=== PATIENT | male | born 1935 | race Caucasian/White ===

== ENCOUNTER 2017-06-18 15:41 | Inpatient (IN) ==
--- NOTE | 2017-06-18 16:15 | Emergency Department Note ---
Disposition Clinical Impression: Prostate cancer Urinary tract infection Qualifiers: Urinary tract infection type: acute cystitis Hematuria presence: without hematuria Qualified Code(s): N30.00 - Acute cystitis without hematuria Disposition: Admitted As Inpatient Condition: Fair Referrals: Odell Marshall MD [Primary Care Provider] - Forms: Work/School Release, ED Satisfaction Letter Time of Disposition: 18:15 Male Urogenital HPI - General Chief complaint: ED Urogenital-Male Stated complaint: Prostate problems,CA Time Seen by Provider: 06/18/17 15:59 Source: patient, family Mode of arrival: ambulatory Limitations: no limitations Nursing Notes Reviewed: Yes Vital Signs Reviewed: Yes - History of Present Illness HPI Narrative: 82-year-old male who comes in apparently has a history of metastatic prostate disease was seen over at the cancer center and sent here for evaluation possible [place] patient's had progressive pain in the severe they are concerned he may have a prostatitis on top of the cancer. They want the patient admitted they will see him in consult here in the hospital. 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 Pt Subjective Complaint: other (Pelvic pain) Onset (ago): year(s) (2015) Duration: constant Location: other (Pelvic region) Severity: moderate, severe Quality: aching Improves with: none new medication - Related Data Home Medications Medication Instructions Recorded Confirmed Aspirin Enteric Coated [Aspirin EC] 81 mg PO DAILY 10/01/16 06/18/17 Lisinopril [Zestril] 20 mg PO DAILY 10/01/16 06/18/17 Omeprazole [PriLOSEC] 20 mg PO DAILY 10/01/16 06/18/17 Psyllium Seed (with Dextrose) 368 gm PO TID 10/01/16 06/18/17 [Natural Fiber Lax Powder] Tramadol HCl/Acetaminophen 1 each PO HS 10/01/16 06/18/17 [Ultracet Tablet] Previous Rx's Medication Instructions Recorded Gabapentin [Neurontin] 100 mg PO DAILY #150 capsule 11/06/16 Allergies Allergy/AdvReac Type Severity Reaction Status Date / Time Iodinated Contrast- Oral and Allergy See Verified 06/18/17 15:00 IV Dye Comments Constitutional: Denies: fever, chills, weakness, weight change Eyes: Denies: eye pain, eye discharge, vision change ENT ED: Denies: ear pain, throat pain, dental pain, hearing loss, epistaxis, congestion, dysphagia Cardiovascular: Denies: chest pain, palpitations, dyspnea on exertion, edema, syncope Respiratory: Denies: cough, dyspnea, wheezes, hemoptysis, stridor Gastrointestinal: Reports: abdominal pain. Denies: nausea, vomiting, diarrhea, constipation, hematemesis, melena, hematochezia Genitourinary: Denies: urgency, dysuria, frequency, hematuria Musculoskeletal: Denies: back pain, neck pain, arthralgia, myalgia Integumentary: Denies: rash, abrasion, lesions Neurological: Denies: headache, weakness, numbness, paresthesias, confusion, abnormal gait, vertigo Psychiatric: Denies: anxiety, depression, suicidal thoughts, homicidal thoughts , auditory hallucinations, visual hallucinations Endocrine: Denies: fatigue Hematological/Lymphatic: Denies: easy bleeding, easy bruising Allergic/Immunologic: Denies: facial swelling, urticaria Past Medical History - Past Medical History Medical history: Reports: cancer, hypertension Psychiatric history: Reports: no psych history - Social History Smoking Status: Former smoker Smokeless Tobacco Status: No Alcohol use: Reports: none Drug use: Reports: none Physical Exam - General Limitations: no limitations General appearance: alert, in no apparent distress - Head Head exam: normal inspection - Eye Eye exam: Present: normal appearance - ENT ENT exam: normal exam, normal oropharynx, mucous membranes moist, normal external ear exam - Neck Neck exam: Present: normal inspection, full ROM, trachea midline - Chest Chest inspection: Present: normal inspection, symmetric chest wall rise - Respiratory Respiratory exam: Present: normal lung sounds bilaterally - Cardiovascular Cardiovascular exam: Present: regular rate, normal rhythm, normal heart sounds - Extremities Exam Extremities exam: Present: normal inspection - Back Exam Back exam: Present: normal inspection - Neurological Exam Neurological exam: Present: alert, oriented X3, normal gait - Psychiatric Psychiatric exam: Present: normal affect, normal mood - Skin Skin exam: Present: warm, dry, intact, normal color Course - Reevaluation(s) Reevaluation #1: 82-year-old with metastatic prostate cancer with increasing pain. He saw oncology today who sent him in for admission. Urology is being consult. We will start him on antibiotics. Time: 18:14 - Consultations Consultation #1: Discussed with Dr. Hubbard, we will see the patient in consult. Time: 18:14 Consultation #2: Discussed with Roney Latham Time: 18:29 Vital Signs Temperature 98.4 F 06/18/17 15:43 Pulse Rate 79 06/18/17 15:43 Respiratory Rate 22 06/18/17 15:43 Blood Pressure 114/88 06/18/17 15:43 O2 Sat by Pulse Oximetry 92 06/18/17 15:43 Temperature 98.4 F 06/18/17 15:56 Pulse Rate 67 06/18/17 18:02 Respiratory Rate 22 06/18/17 15:56 Blood Pressure 127/61 06/18/17 18:02 O2 Sat by Pulse Oximetry 98 06/18/17 18:02 Oxygen Delivery Oxygen Delivery Room Air Urogenital-Male - Lab Data Result diagrams: 06/18/17 16:18 06/18/17 16:18 Lab Results 06/18/17 06/18/17 06/18/17 Range/Units 16:18 16:18 16:50 WBC 12.9 H (4.3-11.1) K/mcL RBC 2.98 L (4.19-5.50) M/mcL Hgb 9.5 L (12.9-16.9) g/dL Hct 28.9 L (37.5-50.1) % MCV 97.0 (83.0-100.0) fL MCH 31.9 (28.0-33.3) pg MCHC 32.9 (31.6-35.5) g/dL RDW 13.1 (11.5-14.5) % Plt Count 257 (140-400) K/mcL MPV 9.0 L (9.4-12.4) fL Immature Gran % 0.4 (0-4) % Seg Neutrophils % 77.1 % Lymphocytes % 13.6 % Monocytes % 7.4 % Eosinophils % 0.9 % Basophils % 0.6 % Neutrophils # 10.0 H (1.6-8.9) K/mcL Lymphocytes # 1.8 (0.6-4.6) K/mcL Monocytes # 1.0 (0.0-1.3) K/mcL Eosinophils # 0.1 (0.0-0.6) K/mcL Basophils # 0.1 (0.0-0.2) K/mcL Sodium 137 (136-145) mEq/L Potassium 4.3 (3.5-5.1) mEq/L Chloride 106 (98-107) mEq/L Carbon Dioxide 27 (23-29) mEq/L BUN 24 H (8-23) mg/dL Creatinine 1.45 H (0.70-1.30) mg/dL Est GFR ( Amer) 56 L (> 60) Est GFR (Non-Af Amer) 46 L (> 60) BUN/Creatinine Ratio 17 (6-26) Glucose 108 H (70-105) mg/dL Calculated Osmolality 289 (280-300) Calcium 8.6 (8.6-10.3) mg/dL Urine Color Red A (Yellow) Urine Clarity Turbid A (Clear) Urine pH 6.0 (5.0-8.0) pH Units Ur Specific [place] 1.016 (1.010-1.025) Urine Protein 100 H (Neg-Trace) mg/dL Urine Glucose (UA) Normal (Normal) mg/dL Urine Ketones Trace H (Negative) mg/dL Urine Blood Large H (Negative) Urine Nitrite Positive A (Negative) Urine Bilirubin Small H (Negative) Urine Urobilinogen Normal (Normal) mg/dL Ur Leukocyte Esterase Large H (Negative) Urine Microscopic RBC TNTC H (0-3) per hpf Urine Microscopic WBC TNTC H (0-3) per hpf Ur Squamous Epith Cells Many H (None-Few) per lpf Urine Bacteria Moderate H (None-Few) per hpf Ur Culture Indicated? NO. A (NO)
[2017-06-18 16:34] LABS: Basophils # 0.1 K/mcL (0.0-0.2); Basophils % 0.6 %; Eosinophils # 0.1 K/mcL (0.0-0.6); Eosinophils % 0.9 %; Hematocrit 28.9 % (37.5-50.1); Hemoglobin 9.5 g/dL (12.9-16.9); Immature Granulocytes % 0.4 % (0-4); Lymphocytes # 1.8 K/mcL (0.6-4.6); Lymphocytes % 13.6 %; Mean Corpuscular HGB Conc 32.9 g/dL (31.6-35.5); Mean Corpuscular Hemoglobin 31.9 pg (28.0-33.3); Monocytes % 7.4 %; Platelet Count 257 K/mcL (140-400); Red Blood Count 2.98 M/mcL (4.19-5.50); Red Cell Distribution Width 13.1 % (11.5-14.5); Segmented Neutrophils % 77.1 %
[2017-06-18 16:50] LABS: Calcium 8.6 mg/dL (8.6-10.3); Potassium 4.3 mEq/L (3.5-5.1)
[2017-06-18 17:12] LABS: Bilirubin,Urine Small (Negative); Blood,Urine Large (Negative); Clarity,Urine Turbid (Clear); Color,Urine Red (Yellow); Glucose,Urine (UA) Normal (Normal); Ketones,Urine Trace mg/dL (Negative); Leukocyte Esterase,Urine Large (Negative); Nitrite,Urine Positive (Negative); Protein,Urine 100 mg/dL (Neg-Trace); Specific Gravity,Urine 1.016 (1.010-1.025); Urobilinogen,Urine Normal (Normal)
[2017-06-18 17:13] LABS: Bacteria,Urine Moderate per hpf (None-Few); RBC,Urine TNTC per hpf (0-3); Squamous Epithelial Cell,Urine Many per lpf (None-Few); WBC,Urine TNTC per hpf (0-3)
[2017-06-18] MEDS ORDERED: cefTRIAXone 1,000 MG in Water for inj. (sterile) 20 ML 10 ML IVP ONE (17:39)
[2017-06-18] MEDS ORDERED: Naloxone 0.4 MG/ML INJ IVP PRN (21:05)
--- NOTE | 2017-06-18 21:14 | Internal Med History&Physical ---
Date of Encounter: 06/18/17 Time of Encounter: 19:30 Internal Medicine - H&P: HPI Chief complaint: Dysuria Admitted From: Home Plans for Post Hospital Care: Home History of present illness: Mr. Link is a 82 year old male presented to ER for dysuria for about 1 week. Past medical history is significant for hypertension, CAD S/P stent, prostate cancer with bone metastasis, recurrent UTI. Patient said he started to have pain on urination since about one week ago. With a burning sensation on urination. The pain is severe, described by patient as "20/10". Patient denies fever, nausea, vomiting, or flank pain. In the emergency room, UA shows UTI. Patient was started with Rocephin and admitted for further management. Urology and oncology consult was called by ER. Past Med Surg Social Fam HX - Past Medical History Medical history: cancer, hypertension Psychiatric history: no psych history - Social History Smoking Status: Former smoker Smokeless Tobacco Status: No Alcohol use: none Drug use: none - Family History Mother History Unknown: Yes Internal Medicine - H&P: Meds Aspirin Enteric Coated [Aspirin EC] 81 mg PO DAILY 10/01/16 [History] Lisinopril [Zestril] 20 mg PO DAILY 10/01/16 [History] Omeprazole [PriLOSEC] 20 mg PO DAILY 10/01/16 [History] Psyllium Seed (with Dextrose) [Natural Fiber Lax Powder] 368 gm PO TID 10/01/16 [History] Gabapentin [Neurontin] 100 mg PO DAILY #150 capsule 11/06/16 [Rx] 3 Allergy/AdvReac Type Severity Reaction Status Date / Time Iodinated Contrast- Oral and Allergy See Verified 06/18/17 18:51 IV Dye Comments All Systems PM: A 10-system review of systems was performed and is negative for pertinent findings except as documented above in the HPI. - Constitutional Vitals: Temp Pulse Resp BP Pulse Ox 98.3 F 73 15 162/52 97 06/18/17 19:34 06/18/17 19:34 06/18/17 19:34 06/18/17 19:34 06/18/17 19:34 General appearance: Present: A&O X 3, no acute distress, answers questions appropriately - Head Head exam: Present: atraumatic, normocephalic - Eye Eye exam: Present: PERRL, conjuntiva pink, sclera anicteric Pupils: Present: PERRL - Neck Neck exam general surgery: Present: supple, trachea midline. Absent: lymphadenopathy - Respiratory Respiratory exam: Present: CTAB. Absent: accessory muscle use, rales, rhonchi, wheezes - Cardiovascular Cardiovascular exam: Present: RRR, +S1, +S2. Absent: diastolic murmur, gallop, rubs, systolic murmur - GI/Abdominal GI/Abdominal exam: Present: normal bowel sounds, soft, no peritoneal signs. Absent: distended, tenderness - Extremities Exam Extremities exam: Present: warm, radial pulses palpable and symmetrical. Absent : calf tenderness, cyanotic, pedal edema - Neurological Exam Neurological exam: Present: CN II-XII intact, oriented X3, no focal deficits. Absent: pronater drift, facial droop, speech deficit - Skin Skin exam: Present: dry, intact Internal Med - H&P Results - Labs CBC & Chem 7: 06/18/17 16:18 06/18/17 16:18 - Assessment and plan (1) CAD (coronary artery disease) Current Visit: Yes Status: Acute Assessment and plan: Will continue home medications. Patient has no chest pain at this point. Qualifiers: Coronary Disease-Associated Artery/Lesion type: [place] artery [place] vs. transplanted heart: ruby heart Associated angina: without angina Qualified Code(s): I25.10 - Atherosclerotic heart disease of [place] coronary artery without angina pectoris (2) Hypertension Current Visit: Yes Status: Acute Assessment and plan: Continue home medications. Closely monitor BP Qualifiers: Hypertension type: essential hypertension Qualified Code(s): I10 - Essential (primary) hypertension (3) DVT prophylaxis Current Visit: Yes Status: Acute Assessment and plan: Heparin subcutaneously (4) Prostate cancer Current Visit: Yes Status: Acute Assessment and plan: Patient has remote metastasis to bone and possible to lung as well. Oncology consult. (5) Urinary tract infection Current Visit: Yes Status: Acute Assessment and plan: No signs of pyelonephritis. Continue Rocephin IV. Follow up urine culture. Urology consult was called by ER because of recurrent UTIs Qualifiers: Urinary tract infection type: acute cystitis Hematuria presence: without hematuria Qualified Code(s): N30.00 - Acute cystitis without hematuria - Time Spent With Patient Total time spent is greater than 50% in coordination of care (as documented) at patient's floor/unit and/or counseling patient: 40 minutes Greater than 35 minutes
[2017-06-18] MEDS ORDERED: *HR* OxyCODONE/APAP 5/325 TABLET PO PRN (22:17)
[2017-06-18] MEDS ORDERED: Acetaminophen 325 MG TABLET PO PRN (22:18)
[2017-06-18] MEDS: *HR* HYDROcodone/Acet 5/325 mg TABLET PO PRN (22:34)
[2017-06-19 04:27] LABS: Basophils # 0.1 K/mcL (0.0-0.2); Basophils % 0.6 %; Eosinophils # 0.1 K/mcL (0.0-0.6); Eosinophils % 0.6 %; Hematocrit 30.2 % (37.5-50.1); Immature Granulocytes % 0.4 % (0-4); Lymphocytes # 2.2 K/mcL (0.6-4.6); Lymphocytes % 15.5 %; Mean Corpuscular HGB Conc 33.1 g/dL (31.6-35.5); Mean Corpuscular Hemoglobin 32.1 pg (28.0-33.3); Mean Corpuscular Volume 96.8 fL (83.0-100.0); Mean Platelet Volume 9.2 fL (9.4-12.4); Monocytes # 0.9 K/mcL (0.0-1.3); Monocytes % 6.7 %; Neutrophils # 10.6 K/mcL (1.6-8.9); Platelet Count 260 K/mcL (140-400); Red Blood Count 3.12 M/mcL (4.19-5.50); Red Cell Distribution Width 13.1 % (11.5-14.5); Segmented Neutrophils % 76.2 %
[2017-06-19 04:51] LABS: Calcium 8.7 mg/dL (8.6-10.3); Magnesium 1.9 mg/dL (1.6-2.6); Potassium 4.1 mEq/L (3.5-5.1)
[2017-06-19] MEDS: *HR* Heparin 5,000 UNIT/ML VIAL SQ SCH ×2 (06:03→17:22)
--- NOTE | 2017-06-19 07:30 | Internal Med Progress Note ---
Date of Encounter: 06/19/17 Time of Encounter: 07:15 - Assessment and plan (1) Urinary tract infection Current Visit: Yes Status: Acute Assessment and plan: Continue Rocephin IV. Follow up urine culture. Urology consult was called by ER because of recurrent UTIs. Appreciate urology recommendations Qualifiers: Urinary tract infection type: acute cystitis Hematuria presence: without hematuria Qualified Code(s): N30.00 - Acute cystitis without hematuria (2) Prostate cancer Current Visit: Yes Status: Acute Assessment and plan: Patient has remote metastasis to bone and possible to lung as well. CT abdomen shows new pulmonary nodules. Appreciate oncology recs. Will also consult palliative care (3) CAD (coronary artery disease) Current Visit: Yes Status: Acute Assessment and plan: continue home meds Qualifiers: Coronary Disease-Associated Artery/Lesion type: [place] artery [place] vs. transplanted heart: [place] heart Associated angina: without angina Qualified Code(s): I25.10 - Atherosclerotic heart disease of [place] coronary artery without angina pectoris (4) Hypertension Current Visit: Yes Status: Acute Assessment and plan: Continue home medications. Closely monitor BP Qualifiers: Hypertension type: essential hypertension Qualified Code(s): I10 - Essential (primary) hypertension (5) DVT prophylaxis Current Visit: Yes Status: Acute Assessment and plan: Heparin subcutaneously (6) Acute kidney injury Current Visit: Yes Status: Acute Assessment and plan: ANN vs Ann on CKD. Monitor creatinine. IV fluids - Time Spent With Patient Total time spent is greater than 50% in coordination of care (as documented) at patient's floor/unit and/or counseling patient: - Subjective Interval history: No acute events overnight - Constitutional Vitals: Temp Pulse Resp BP Pulse Ox 98.9 F 59 18 140/50 96 06/19/17 07:22 06/19/17 07:22 06/19/17 07:22 06/19/17 07:22 06/19/17 07:22 General appearance: Present: A&O X 3, no acute distress, answers questions appropriately - Head Head exam: Present: atraumatic, normocephalic - Eye Eye exam: Present: PERRL, conjuntiva pink, sclera anicteric Pupils: Present: PERRL - Neck Neck exam general surgery: Present: supple, trachea midline. Absent: lymphadenopathy - Respiratory Respiratory exam: Present: CTAB. Absent: accessory muscle use, rales, rhonchi, wheezes - Cardiovascular Cardiovascular exam: Present: RRR, +S1, +S2. Absent: diastolic murmur, gallop, rubs, systolic murmur - GI/Abdominal GI/Abdominal exam: Present: normal bowel sounds, soft, no peritoneal signs. Absent: distended, tenderness - Extremities Exam Extremities exam: Present: warm, radial pulses palpable and symmetrical. Absent : calf tenderness, cyanotic, pedal edema - Neurological Exam Neurological exam: Present: CN II-XII intact, oriented X3, no focal deficits. Absent: pronater drift, facial droop, speech deficit - Skin Skin exam: Present: dry, intact Internal Medicine: Result - Labs CBC & Chem 7: 06/19/17 03:30 06/19/17 03:30 Labs: Short CBC 06/19/17 Range/Units 03:30 WBC 13.9 H (4.3-11.1) K/mcL Hgb 10.0 L (12.9-16.9) g/dL Hct 30.2 L (37.5-50.1) % Plt Count 260 (140-400) K/mcL Neutrophils # 10.6 H (1.6-8.9) K/mcL BMP 06/19/17 03:30 Sodium 137 Potassium 4.1 Chloride 104 Carbon Dioxide 24 BUN 23 Creatinine 1.49 H Glucose 101 Calcium 8.7 Consult Discharge Plan - Plan Referrals: Odell Marshall MD [Primary Care Provider] -
[2017-06-19] MEDS: *HR* OxyCODONE/APAP 5/325 TABLET PO PRN ×2 (09:58→19:06)
[2017-06-19] MEDS: Lisinopril 20 MG TABLET PO SCH (09:59)
[2017-06-19] MEDS: Aspirin Enteric Coated 81 MG Tablet PO SCH (09:59)
[2017-06-19] MEDS: Gabapentin 100 MG CAPSULE PO SCH (09:59)
[2017-06-19] MEDS: 0.9 % Sodium Chloride 1,000 ML IVC SCH ×2 (10:00→17:22)
--- NOTE | 2017-06-19 10:58 | Palliative - Consult Note ---
Date of Encounter: 06/19/17 Time of Encounter: 10:00 - Assessment and Plan (1) Weakness generalized Current Visit: Yes Status: Acute Assessment and plan: Patient reports increased concern over ability to care for self at discharge. Patient reports required 4 people to assist to bathroom earlier today. Patient lives alone. Patient is agreeable to attempting PT/OT to improve strength and willing to consider rehab placement at discharge. Will order PT/OT. (2) Goals of care, counseling/discussion Current Visit: Yes Status: Acute Assessment and plan: Spoke with patient regarding goals of care. Patient wishes to discuss disease prognosis with Oncology and his daughter prior to making decisions regarding pursuing hospice, versus continued cancer treatments every three months. Patient is aware he is not strong enough to care for himself, discussed the possibility of rehab at discharge; patient reports he will consider it. Patient did verbalize he does not wish to be intubated or having chest compressions; patient's code status changed to DNR CCA/DNI. Patient chose DNR CCA/DNI after being explained the options for code status. Patient verbalized that his previous had been made DNR CC and her " drug out forever, and she didn't seem to comfortable" and "just do what you can until my heart stops." Patient reported his daughter will be in from [place] this afternoon and requests Palliative care to round and talk with her regarding his care and discharge planning. SW notified. (3) Prostate cancer Current Visit: Yes Status: Acute Assessment and plan: Oncology is consulted. Expressed to patient prognosis of Prostate Cancer that is metastisizing. Patient verbalized understanding. Patient explained that patient's daughter wishes to bring him back to [place] at discharge; son wishes to bring him to [place] at discharge, and other son wishes to keep in [place] for rehab at discharge. Patient reports not making any final decisions without speaking with Oncology and his daughter. (4) Urinary tract infection Current Visit: Yes Status: Acute Assessment and plan: Patient receiving Ceftriaxone for UTI treatment. WBC worsening to 13.9 today. Qualifiers: Urinary tract infection type: acute cystitis Hematuria presence: without hematuria Qualified Code(s): N30.00 - Acute cystitis without hematuria Palliative-CN HPI - Data of Consult Patient: new to practice Consult date: 06/19/17 Requesting Physician: Roney Latham CNP Primary Care Provider: Odell Marshall MD - Consult Narrative Palliative Care/Comfort Measures: Palliative care Reason for consult: Assistance with goals of care. History of present illness: Mr. Link is a 82 year old male arrived to [facility] for dysuria times one week on 06/18/17. Patient reports a burning sensation with urination. PMH: HTN , CAD, s/p stent, recurrent UTIs, and prostate Cancer with bone metastatis. Urinalysis completed in ED showing UTI. Urology and Oncology consult made from ER. Patient was admitted for further management of CAD, HTN, Prostate Cancer, and UTI. CT completed showing: Several bibasilar pulmonary nodules present worrisome for pulmonary metastatic disease, Abnormal irregular thickening of the wall of the urinary bladder and moderate abnormal soft tissue in the presacral and pre coccygeal area consistent with radiation changes, Sclerotic area in the body of the left pubis possibly an osteoblastic metastasis, and Large hiatal hernia. Patient resting in bed with RN and two nursing students around him upon arrival for assessment. Patient is alert and oriented times three. Patient denies pain when not moving; however, reports an increase to a burning 20/10 with any type of movement. Concerned over new onset weakness, requiring assistance of four people for ambulation. Patient denies nausea or vomiting. 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 Patient lives alone with dog and has a son that lives "a good distance off on the other side of [place]." Patient has a daughter that lives in [place] and a son that lives in [place]. Patient reports they all wish for him to move closer to them; however, he has visited them all but none of them are home in [place]. Patient is able to follow all commands. CC: Roney Latham CNP Past Med Surg Social Fam HX - Past Medical History Medical history: cancer, hypertension Psychiatric history: no psych history - Social History Smoking Status: Former smoker Smokeless Tobacco Status: No Alcohol use: none Drug use: none - Family History Mother History Unknown: Yes Medications and Allergies Aspirin Enteric Coated [Aspirin EC] 81 mg PO DAILY 10/01/16 [History] Lisinopril [Zestril] 20 mg PO DAILY 10/01/16 [History] Omeprazole [PriLOSEC] 20 mg PO DAILY 10/01/16 [History] Psyllium Seed (with Dextrose) [Natural Fiber Lax Powder] 368 gm PO TID 10/01/16 [History] Gabapentin [Neurontin] 100 mg PO DAILY #150 capsule 11/06/16 [Rx] 3 Allergy/AdvReac Type Severity Reaction Status Date / Time Iodinated Contrast- Oral and Allergy See Verified 06/18/17 18:51 IV Dye Comments - Constitutional Constitutional ROS PAL: no frequent falls - EENT Ears: decreased hearing (Busted ear drum in left ear.) - Cardiovascular Cardiovascular ROS: no chest pain - Respiratory Respiratory: no dyspnea - Gastrointestinal Gastrointestinal: no abdominal pain, no constipation, no nausea, no vomiting - Genitourinary Genitourinary ROS male: difficulty urinating, dysuria - Musculoskeletal Musculoskeletal ROS IM: muscle weakness, no joint swelling - Neurological Neurological ROS: no abnormal speech - Psychiatric Psychiatric general PM: anxiety (Chronic, self-manages) Palliative Care-Exam - Constitutional Vitals: Temp Pulse Resp BP Pulse Ox 98.9 F 59 18 140/50 96 06/19/17 07:22 06/19/17 07:22 06/19/17 07:22 06/19/17 07:22 06/19/17 07:22 General appearance: Present: cooperative, no acute distress - Head Head Exam: Present: atraumatic, normal inspection - Eye Eye exam: Present: EOMI, normal appearance, PERRL, conjuntiva pink. Absent: nystagmus, periorbital swelling, periorbital tenderness - ENT ENT exam: Present: mucous membranes moist, normal exam - Expanded ENT Exam Mouth Exam: Present: moist. Absent: drooling, dry mucosa Throat exam: Present: normal inspection - Neck Neck exam: Present: full ROM, normal inspection. Absent: tenderness - Respiratory Respiratory exam: Present: CTAB (History of two lobectomy), wheezes. Absent: accessory muscle use, respiratory distress - Expanded Respiratory Exam Location: wheezes: Right, Upper - Cardiovascular Cardiovascular exam: Present: +S1, +S2. Absent: irregular rhythm - Expanded Cardiovascular Exam Peripheral pulses: 2+: Radial (L), Radial (R), Posterior Tibialis (L), Posterior Tibialis (R), Dorsalis Pedis (L) PM, Dorsalis Pedis (R) PM - GI/Abdominal Exam GI/Abdominal exam: Present: soft. Absent: tenderness - Rectal Rectal Exam: Present: deferred - Neurological Exam Neurological exam: Present: alert, oriented X3, strengths equal and symetr throughout. Absent: altered, facial droop, speech deficit - Expanded Neurological Exam Patient oriented to: Present: person, place, time Coma Scale Eye Opening: Spontaneous Coma Scale Motor Response: Obeys Commands Coma Scale Verbal Response: Oriented Coma Scale Total: 15 - Psychiatric Psychiatric exam: Present: normal affect, normal mood - Skin Skin exam: Present: dry, intact Internal Medicine - CN: Reslt - Labs CBC & Chem 7: 06/19/17 03:30 06/19/17 03:30 Labs: Short CBC 06/19/17 Range/Units 03:30 WBC 13.9 H (4.3-11.1) K/mcL Hgb 10.0 L (12.9-16.9) g/dL Hct 30.2 L (37.5-50.1) % Plt Count 260 (140-400) K/mcL Neutrophils # 10.6 H (1.6-8.9) K/mcL BMP 06/19/17 03:30 Sodium 137 Potassium 4.1 Chloride 104 Carbon Dioxide 24 BUN 23 Creatinine 1.49 H Glucose 101 Calcium 8.7 Consult Discharge Plan - Plan Referrals: Odell Marshall MD [Primary Care Provider] - Palliative Quality Palliative Quality: Screen for Code Status: Yes, Screen for Goals of Care: Yes, Screen for Pain: Yes, If Pain Regimen Started, Initiate Bowel Regimen: NA, Screen for Nausea/Vomitting: Yes
--- NOTE | 2017-06-19 11:41 | Urology - Consult Note ---
Date of Encounter: 06/19/17 Time of Encounter: 11:39 - Assessment and Plan (1) Prostate carcinoma Current Visit: No Status: Acute Assessment and plan: 82-year-old man with metastatic prostate cancer. We will continue androgen deprivation. Appreciate medical oncology consultation. No surgical need is necessary at this time. He does not have urinary retention or bladder obstruction. The prostate cancer has not obstructed the ureters. (2) Urinary tract infection Current Visit: Yes Status: Acute Assessment and plan: We discussed his dysuria. We will continue him on ceftriaxone. Await urine culture results. Qualifiers: Urinary tract infection type: acute cystitis Hematuria presence: without hematuria Qualified Code(s): N30.00 - Acute cystitis without hematuria Urology CN:HPI Consult date: 06/19/17 Reason for consult Urology: Other (dysuria, metastatic prostate cancer) History of present illness: 82-year-old man was admitted for dysuria and metastatic prostate cancer. In workup he had a CT scan which showed some pulmonary nodules as well as sclerotic bone lesions. His most recent PSA was 39.33. He has been having trouble urinating and has incontinence. He also reports diarrhea. He recently has noted some worsening dysuria and was transferred to the emergency department from medical oncology. The CT scan did not show any evidence of hydronephrosis. He was not in urinary retention. Past Med Surg Social Fam HX - Past Medical History Medical history: cancer, hypertension Psychiatric history: no psych history - Social History Smoking Status: Former smoker Smokeless Tobacco Status: No Alcohol use: none Drug use: none - Family History Mother History Unknown: Yes Medications and Allergies Aspirin Enteric Coated [Aspirin EC] 81 mg PO DAILY 10/01/16 [History] Lisinopril [Zestril] 20 mg PO DAILY 10/01/16 [History] Omeprazole [PriLOSEC] 20 mg PO DAILY 10/01/16 [History] Psyllium Seed (with Dextrose) [Natural Fiber Lax Powder] 368 gm PO TID 10/01/16 [History] Gabapentin [Neurontin] 100 mg PO DAILY #150 capsule 11/06/16 [Rx] 3 Allergy/AdvReac Type Severity Reaction Status Date / Time Iodinated Contrast- Oral and Allergy See Verified 06/18/17 18:51 IV Dye Comments Review of Systems - Constitutional no chills, no fever(s) - EENT Nose, mouth and throat: no dizziness - Cardiovascular no chest pain - Respiratory no dyspnea - Gastrointestinal no nausea, no vomiting - Genitourinary dysuria, no flank pain, no hematuria - Musculoskeletal no back pain - Integumentary no erythema, no rash - Neurological no weakness - Psychiatric no suicidal ideation - Hematologic/Lymphatic no easy bleeding - Allergic/Immunologic no wheezing Exam Initial Vital Signs Temp Pulse Resp BP Pulse Ox 98.4 F 79 22 114/88 92 06/18/17 15:43 06/18/17 15:43 06/18/17 15:43 06/18/17 15:43 06/18/17 15:43 - General physical appearance Present: well developed, well nourished, no distress - Eyes Absent: icteric - ENT Present: normal nares - Neck Present: trachea midline - Respiratory Present: normal respiratory effort - Cardiovascular Cardiovascular exam IM: RRR - Abdomen Abdomen: Present: soft - Genitourinary normal penis with no external lesions - Integumentary Present: no rash - Neurologic Present: normal coordination - Musculoskeletal Present: other (grossly normal) Urology Results - Labs 06/19/17 03:30 06/19/17 03:30 Abnormal lab results WBC 13.9 K/mcL (4.3-11.1) H 06/19/17 03:30 RBC 3.12 M/mcL (4.19-5.50) L 06/19/17 03:30 Hgb 10.0 g/dL (12.9-16.9) L 06/19/17 03:30 Hct 30.2 % (37.5-50.1) L 06/19/17 03:30 MPV 9.2 fL (9.4-12.4) L 06/19/17 03:30 Neutrophils # 10.6 K/mcL (1.6-8.9) H 06/19/17 03:30 Creatinine 1.49 mg/dL (0.70-1.30) H 06/19/17 03:30 Est GFR ( Amer) 55 (> 60) L 06/19/17 03:30 Est GFR (Non-Af Amer) 45 (> 60) L 06/19/17 03:30 Urine Color Red (Yellow) A 06/18/17 16:50 Urine Clarity Turbid (Clear) A 06/18/17 16:50 Urine Protein 100 mg/dL (Neg-Trace) H 06/18/17 16:50 Urine Ketones Trace mg/dL (Negative) H 06/18/17 16:50 Urine Blood Large (Negative) H 06/18/17 16:50 Urine Nitrite Positive (Negative) A 06/18/17 16:50 Urine Bilirubin Small (Negative) H 06/18/17 16:50 Ur Leukocyte Esterase Large (Negative) H 06/18/17 16:50 Urine Microscopic RBC TNTC per hpf (0-3) H 06/18/17 16:50 Urine Microscopic WBC TNTC per hpf (0-3) H 06/18/17 16:50 Ur Squamous Epith Cells Many per lpf (None-Few) H 06/18/17 16:50 Urine Bacteria Moderate per hpf (None-Few) H 06/18/17 16:50 Ur Culture Indicated? NO. (NO) A 06/18/17 16:50 Diabetes panel 06/19/17 Range/Units 03:30 Sodium 137 (136-145) mEq/L Potassium 4.1 (3.5-5.1) mEq/L Chloride 104 (98-107) mEq/L Carbon Dioxide 24 (23-29) mEq/L BUN 23 (8-23) mg/dL Creatinine 1.49 H (0.70-1.30) mg/dL Glucose 101 (70-105) mg/dL Calcium 8.7 (8.6-10.3) mg/dL Calcium panel 06/19/17 Range/Units 03:30 Calcium 8.7 (8.6-10.3) mg/dL Pituitary panel 06/19/17 Range/Units 03:30 Sodium 137 (136-145) mEq/L Potassium 4.1 (3.5-5.1) mEq/L Chloride 104 (98-107) mEq/L Carbon Dioxide 24 (23-29) mEq/L BUN 23 (8-23) mg/dL Creatinine 1.49 H (0.70-1.30) mg/dL Glucose 101 (70-105) mg/dL Calcium 8.7 (8.6-10.3) mg/dL Adrenal panel 06/19/17 Range/Units 03:30 Sodium 137 (136-145) mEq/L Potassium 4.1 (3.5-5.1) mEq/L Chloride 104 (98-107) mEq/L Carbon Dioxide 24 (23-29) mEq/L BUN 23 (8-23) mg/dL Creatinine 1.49 H (0.70-1.30) mg/dL Glucose 101 (70-105) mg/dL Calcium 8.7 (8.6-10.3) mg/dL All other labs normal. - Imaging CT scan - abdomen: report reviewed, image reviewed CT scan - pelvis: report reviewed, image reviewed Consult Discharge Plan - Plan Referrals: Odell Marshall MD [Primary Care Provider] -
[2017-06-19] MEDS: *HR* HYDROcodone/Acet 5/325 mg TABLET PO PRN ×2 (15:23→23:25)
--- NOTE | 2017-06-19 17:24 | Oncology Inp Consult Note ---
<Moe Clemens Jr - Last Filed: 06/19/17 17:39> Date of Encounter: 06/19/17 Time of Encounter: 17:00 Assessment and Plan (1) Prostate cancer Status: Acute Assessment and plan: This is a pleasant 82-year-old male with metastatic prostate cancer. He is on lupron/zometa every 3 months. Next dose 07/16/17. Sent to ER from our office yesterday for suspected UTI and intractable pain. Seen by Dr Hubbard in urology. Appreciate his input No surgical need is necessary at this time. He does not have urinary retention or bladder obstruction. The prostate cancer has not obstructed the ureters. CT abdomen and pelvis does show new bilateral basilar pulmonary nodules and new bone lesion at left pubis region that coincides with his pain complaints. He has known bone mets in left shoulder/scapula that has worsened. He has received several radiation treatments to pelvis and 1 treatment to left shoulder. Patient has worsening prostate cancer. Discussed in detail with him, his daughter and son at bedside. Patient has changed code status to DNR CCA/DNI. Last PSA 39 in April 2017, climbing from 12 in January 2017. After lengthy discussion, patient agreed to following plan with us: 1. CT scan chest to assess extent of pulmonary nodules. 2. Whole body bone scan 3. Start Casodex 50mg PO daily 4. [place] 5mg 1-2 tab PO q 6hr PRN pain 5. Colace for bowel regimen BID 6. PSA level After discharge, he will follow up next week at cancer center with Dr Walters. He will be seen by radiation oncologist as well for radiation opinion. Dr Walters assessed patient with me today. (2) Urinary tract infection Status: Acute Qualifiers: Urinary tract infection type: acute cystitis Hematuria presence: with hematuria Qualified Code(s): N30.01 - Acute cystitis with hematuria (3) Bone metastasis Status: Acute (4) Pulmonary nodules Status: Acute (5) Cancer associated pain Status: Acute - Data of Consult Patient: known to practice within the last 3 years Consult date: 06/19/17 Requesting Physician: Roney Latham CNP Primary Care Provider: Odell Marshall MD - Consult Narrative Reason for consult: metastatic prostate cancer History of present illness: Mr. Link is a 82 year old male with following cancer diagnosis: 1. Castrate resistant metastatic prostatic adenocarcinoma. Initially diagnosed in January 2016 with [place] 4+4 = 8/Nancy 4+5 = 9 after being found to have metastatic disease in the bladder by cystoscopy. Staging studies revealed metastatic disease involving the left shoulder/scapula. He was placed on Lupron with gabriel PSA 0.4 April, 2. Remote history of rectal cancer status post LAR followed by adjuvant radiotherapy and chemotherapy. 3. Peripheral neuropathy Prior therapy: 1. Rectal cancer: a. Adjuvant radiotherapy b. Adjuvant FOLFOX 2. Prostate cancer a. Abiraterone, stopped secondary to diarrhea despite 75% dose reduction Current therapy: 1. Lupron q 3 months 2. Zometa q 3 months Patient seen at [facility] 06/18/17 acutely ill with intractable groin pain, pelvic pain, dysuria, suspected UTI/prostatitis. He was previously hospitalized with prostatitis at beginning of 2017. Patient sent to ER from [facility] and admitted for evaluation. Ct scan abdomen and pelvis showed new pulmonary nodules, bladder thickening and new bone lesion at left pubis. Past Med Surg Social Fam HX - Past Medical History Medical history: cancer, hypertension Psychiatric history: no psych history - Social History Smoking Status: Former smoker Smokeless Tobacco Status: No Alcohol use: none Drug use: none - Family History Mother History Unknown: Yes Medications and Allergies Aspirin Enteric Coated [Aspirin EC] 81 mg PO DAILY 10/01/16 [History] Lisinopril [Zestril] 20 mg PO DAILY 10/01/16 [History] Omeprazole [PriLOSEC] 20 mg PO DAILY 10/01/16 [History] Psyllium Seed (with Dextrose) [Natural Fiber Lax Powder] 368 gm PO TID 10/01/16 [History] Gabapentin [Neurontin] 100 mg PO DAILY #150 capsule 11/06/16 [Rx] 3 Allergy/AdvReac Type Severity Reaction Status Date / Time Iodinated Contrast- Oral and Allergy See Verified 06/18/17 18:51 IV Dye Comments Constitutional: Present: fatigue Gastrointestinal: Present: abdominal pain Genitourinary: change in urinary stream, difficulty urinating, dysuria, nocturia , testicular pain, urinary frequency, urinary incontinence, urinary urgency Musculoskeletal: Present: muscle weakness Oncology - Exam - Constitutional Vitals: Temp Pulse Resp BP Pulse Ox 98.7 F 67 16 139/57 95 06/19/17 15:16 06/19/17 15:16 06/19/17 15:16 06/19/17 15:16 06/19/17 15:16 General appearance: cooperative, no acute distress - Head Head exam: Present: atraumatic, normocephalic - Eye Eye exam: Present: normal appearance Pupils: Present: PERRL - ENT ENT exam: Present: mucous membranes moist - Neck Neck exam: Present: full ROM, normal inspection - Respiratory Respiratory exam: Present: CTAB - Cardiovascular Cardiovascular exam: Present: RRR, +S1, +S2 - GI/Abdominal GI/Abdominal exam: Present: guarding, normal bowel sounds, soft, tenderness - Extremities Exam Extremities exam: Present: full ROM, normal inspection - Neurological Exam Neurological exam: Present: alert, oriented X3, no focal deficits - Psychiatric Psychiatric exam: Present: normal affect, normal mood Oncology - Results Labs: Short CBC 06/19/17 Range/Units 03:30 WBC 13.9 H (4.3-11.1) K/mcL Hgb 10.0 L (12.9-16.9) g/dL Hct 30.2 L (37.5-50.1) % Plt Count 260 (140-400) K/mcL Neutrophils # 10.6 H (1.6-8.9) K/mcL BMP 06/19/17 03:30 Sodium 137 Potassium 4.1 Chloride 104 Carbon Dioxide 24 BUN 23 Creatinine 1.49 H Glucose 101 Calcium 8.7 Consult Discharge Plan - Plan Referrals: Odell Marshall MD [Primary Care Provider] - <Ronaldo Walters S - Last Filed: 06/20/17 08:22> Date of Encounter: 06/20/17 - Data of Consult Requesting Physician: Roney Latham CNP Primary Care Provider: Odell Marshall MD - Consult Narrative History of present illness: Mr. Link is a 82 year old male Oncology - Exam - Constitutional Vitals: Temp Pulse Resp BP Pulse Ox 99.4 F 82 19 145/53 98 06/20/17 07:30 06/20/17 07:30 06/20/17 07:30 06/20/17 07:30 06/20/17 07:30 Oncology - Results Labs: Short CBC 06/20/17 Range/Units 04:30 WBC 20.7 H (4.3-11.1) K/mcL Hgb 8.7 L (12.9-16.9) g/dL Hct 27.3 L (37.5-50.1) % Plt Count 221 (140-400) K/mcL Neutrophils # 17.8 H (1.6-8.9) K/mcL BMP 06/20/17 04:30 Sodium 134 L Potassium 5.1 Chloride 106 Carbon Dioxide 22 L BUN 34 H Creatinine 2.70 H Glucose 109 H Calcium 7.8 L - Attending Attestation I have seen and examined Mr. Link and agree with Mr. Clemens's assessment. He has evidence of progressive, symptomatic prostate cancer with increasing pain in a site of know disease about the left shoulder and his pelvic floor pubic area. Personal review of CT imaging reveals a metastasis involving the pubis. New lung nodules concerning for pulmonary disease. He is intolerant of many therapies and has been reluctant to try others such as chemotherapy. We discussed that we may be able to reirradiate the left shoulder and possibly pubic area, although he has had prior XRT to the left shoulder as well as rectal radiation in the distant past. Will d/w radiation oncology as an outpatient. Continue with percocet for pain control. CT imaging of the chest and bone scan requested. Continue abx for UTI; he is improving from this perspective. Case d/w Dr. Hubbard as well.
[2017-06-19] MEDS ORDERED: cefTRIAXone 1,000 MG in 0.9 % Sodium Chloride Mini Bag 100 ML IVPB SCH (18:00)
[2017-06-19] MEDS: Bicalutamide 50 MG TABLET PO SCH (18:27)
[2017-06-20] MEDS: *HR* OxyCODONE/APAP 5/325 TABLET PO PRN ×2 (02:05→16:44)
[2017-06-20 04:58] LABS: Basophils # 0.1 K/mcL (0.0-0.2); Basophils % 0.2 %; Eosinophils % 0.2 %; Hematocrit 27.3 % (37.5-50.1); Hemoglobin 8.7 g/dL (12.9-16.9); Immature Granulocytes % 0.8 % (0-4); Lymphocytes # 1.5 K/mcL (0.6-4.6); Lymphocytes % 7.3 %; Mean Corpuscular HGB Conc 31.9 g/dL (31.6-35.5); Mean Corpuscular Volume 97.2 fL (83.0-100.0); Mean Platelet Volume 9.4 fL (9.4-12.4); Monocytes # 1.1 K/mcL (0.0-1.3); Monocytes % 5.3 %; Neutrophils # 17.8 K/mcL (1.6-8.9); Platelet Count 221 K/mcL (140-400); Red Blood Count 2.81 M/mcL (4.19-5.50); Red Cell Distribution Width 13.1 % (11.5-14.5); Segmented Neutrophils % 86.2 %
[2017-06-20 05:21] LABS: Calcium 7.8 mg/dL (8.6-10.3); Magnesium 1.7 mg/dL (1.6-2.6); Phosphorous 3.6 mg/dL (2.7-4.5); Potassium 5.1 mEq/L (3.5-5.1)
[2017-06-20] MEDS: 0.9 % Sodium Chloride 1,000 ML IVC SCH ×2 (05:40→16:31)
[2017-06-20] MEDS: *HR* Heparin 5,000 UNIT/ML VIAL SQ SCH ×2 (05:40→16:34)
--- NOTE | 2017-06-20 07:58 | Internal Med Progress Note ---
Date of Encounter: 06/20/17 Time of Encounter: 08:00 - Assessment and plan (1) Sepsis Current Visit: Yes Status: Acute Assessment and plan: Sepsis 2/2 to pyelonephritis. On zosyn. f/U blood cultures. CT scan shows hydronephrosis and perinephric stranding. Urology following Qualifiers: Sepsis type: sepsis due to unspecified organism Qualified Code(s): A41.9 - Sepsis, unspecified organism (2) Acute kidney injury Current Visit: Yes Status: Acute Assessment and plan: MELANY vs Melany on CKD. Monitor creatinine. IV fluids. Obtain CT abdomen to r/o obstruction 2/2 to worsening creatinine (3) Urinary tract infection Current Visit: Yes Status: Acute Assessment and plan: Switched rocephin to zosyn 2/2 to worsening leukocytosis. Follow up urine culture. Requested blood cultures. Urology consult was called by ER because of recurrent UTIs. Urology recommend no acute intervention. Ne w CT scan showed bilateral perinephric stranding Qualifiers: Urinary tract infection type: acute cystitis Hematuria presence: with hematuria Qualified Code(s): N30.01 - Acute cystitis with hematuria (4) Prostate cancer Current Visit: Yes Status: Acute Assessment and plan: Patient has remote metastasis to bone and possible to lung as well. CT abdomen shows new pulmonary nodules. Oncology plan for bone scan today. Palliative care following and patient is now DNR (5) CAD (coronary artery disease) Current Visit: Yes Status: Acute Assessment and plan: continue home meds Qualifiers: Coronary Disease-Associated Artery/Lesion type: [place] artery [place] vs. transplanted heart: [place] heart Associated angina: without angina Qualified Code(s): I25.10 - Atherosclerotic heart disease of [place] coronary artery without angina pectoris (6) Hypertension Current Visit: Yes Status: Acute Assessment and plan: Continue home medications. Closely monitor BP Qualifiers: Hypertension type: essential hypertension Qualified Code(s): I10 - Essential (primary) hypertension (7) DVT prophylaxis Current Visit: Yes Status: Acute Assessment and plan: Heparin subcutaneously - Time Spent With Patient Total time spent is greater than 50% in coordination of care (as documented) at patient's floor/unit and/or counseling patient: - Subjective Interval history: No acute events overnight - Constitutional Vitals: Temp Pulse Resp BP Pulse Ox 99.4 F 82 19 145/53 98 06/20/17 07:30 06/20/17 07:30 06/20/17 07:30 06/20/17 07:30 06/20/17 07:30 General appearance: Present: A&O X 3, no acute distress, answers questions appropriately - Head Head exam: Present: atraumatic, normocephalic - Eye Eye exam: Present: PERRL, conjuntiva pink, sclera anicteric Pupils: Present: PERRL - Neck Neck exam general surgery: Present: supple, trachea midline. Absent: lymphadenopathy - Respiratory Respiratory exam: Present: CTAB. Absent: accessory muscle use, rales, rhonchi, wheezes - Cardiovascular Cardiovascular exam: Present: RRR, +S1, +S2. Absent: diastolic murmur, gallop, rubs, systolic murmur - GI/Abdominal GI/Abdominal exam: Present: distended, normal bowel sounds, soft, no peritoneal signs Additional comments: Mild abdominal tenderness - Extremities Exam Extremities exam: Present: warm, radial pulses palpable and symmetrical. Absent : calf tenderness, cyanotic, pedal edema - Neurological Exam Neurological exam: Present: CN II-XII intact, oriented X3, no focal deficits. Absent: pronater drift, facial droop, speech deficit - Skin Skin exam: Present: dry, intact Internal Medicine: Result - Labs CBC & Chem 7: 06/20/17 04:30 06/20/17 04:30 Labs: Short CBC 06/20/17 Range/Units 04:30 WBC 20.7 H (4.3-11.1) K/mcL Hgb 8.7 L (12.9-16.9) g/dL Hct 27.3 L (37.5-50.1) % Plt Count 221 (140-400) K/mcL Neutrophils # 17.8 H (1.6-8.9) K/mcL BMP 06/20/17 04:30 Sodium 134 L Potassium 5.1 Chloride 106 Carbon Dioxide 22 L BUN 34 H Creatinine 2.70 H Glucose 109 H Calcium 7.8 L - Impressions Impressions Chest CT 06/19/17 17:42 IMPRESSION: 1. Multiple bilateral pulmonary nodules without calcifications. Largest measures approximately 0.8 cm in the right lower lobe. Findings are suspicious for metastatic disease which cannot be excluded. 2. Sclerotic lesion of the left scapula suspicious for osseous metastases. 3. Multiple calcified pleural plaques. Findings are nonspecific but can be seen with prior asbestos exposure. 4. Enlarged and calcified mediastinal lymph nodes - likely sequela of prior granulomatous disease. 5. Hiatal hernia. D/ / 06/19/2017 21:00:17 Alberto Walker MD / wes Interpreting Provider: Alberto Walker MD Consult Discharge Plan - Plan Referrals: Odell Marshall MD [Primary Care Provider] -
[2017-06-20] MEDS: *HR* HYDROcodone/Acet 5/325 mg TABLET PO PRN (08:03)
[2017-06-20] MEDS: Aspirin Enteric Coated 81 MG Tablet PO SCH (08:03)
[2017-06-20] MEDS: Lisinopril 20 MG TABLET PO SCH (08:03)
[2017-06-20] MEDS: Gabapentin 100 MG CAPSULE PO SCH (08:03)
[2017-06-20] MEDS ORDERED: *HR* LORazepam 2 MG/ML VIAL IVP ONE (08:52)
[2017-06-20] MEDS ORDERED: Levofloxacin 250 MG/50 ML 250 MG/50 ML BAG IVPB SCH (09:00)
--- NOTE | 2017-06-20 09:09 | Urology Progress Note ---
Date of Encounter: 06/20/17 Time of Encounter: 09:08 - Assessment and Plan (1) Prostate carcinoma Current Visit: No Status: Acute Assessment and plan: Continue catheter for now. (2) Urinary tract infection Current Visit: Yes Status: Acute Assessment and plan: Catheter placed today. Await final cultures. Continue abx. Qualifiers: Urinary tract infection type: acute cystitis Hematuria presence: with hematuria Qualified Code(s): N30.01 - Acute cystitis with hematuria Progress Note Narrative: Low grade temperature yesterday and WBC is up today. 16 [place] catheter placed. Objective Initial Vital Signs Temp Pulse Resp BP Pulse Ox 98.4 F 79 22 114/88 92 06/18/17 15:43 06/18/17 15:43 06/18/17 15:43 06/18/17 15:43 06/18/17 15:43 - General physical appearance Present: well developed, well nourished, no distress - Respiratory Present: normal respiratory effort - Abdomen Present: soft - Genitourinary Present: normal penis with no external lesions, other (Mild scrotal erythema from urine.) - Labs 06/20/17 04:30 06/20/17 04:30 Diabetes panel 06/20/17 Range/Units 04:30 Sodium 134 L (136-145) mEq/L Potassium 5.1 (3.5-5.1) mEq/L Chloride 106 (98-107) mEq/L Carbon Dioxide 22 L (23-29) mEq/L BUN 34 H (8-23) mg/dL Creatinine 2.70 H (0.70-1.30) mg/dL Glucose 109 H (70-105) mg/dL Calcium 7.8 L (8.6-10.3) mg/dL Calcium panel 06/20/17 Range/Units 04:30 Calcium 7.8 L (8.6-10.3) mg/dL Phosphorus 3.6 (2.7-4.5) mg/dL Pituitary panel 06/20/17 Range/Units 04:30 Sodium 134 L (136-145) mEq/L Potassium 5.1 (3.5-5.1) mEq/L Chloride 106 (98-107) mEq/L Carbon Dioxide 22 L (23-29) mEq/L BUN 34 H (8-23) mg/dL Creatinine 2.70 H (0.70-1.30) mg/dL Glucose 109 H (70-105) mg/dL Calcium 7.8 L (8.6-10.3) mg/dL Adrenal panel 06/20/17 Range/Units 04:30 Sodium 134 L (136-145) mEq/L Potassium 5.1 (3.5-5.1) mEq/L Chloride 106 (98-107) mEq/L Carbon Dioxide 22 L (23-29) mEq/L BUN 34 H (8-23) mg/dL Creatinine 2.70 H (0.70-1.30) mg/dL Glucose 109 H (70-105) mg/dL Calcium 7.8 L (8.6-10.3) mg/dL Consult Discharge Plan - Plan Referrals: Oedll Marshall MD [Primary Care Provider] -
--- NOTE | 2017-06-20 10:48 | Oncology Inp Progress Note ---
Date of Encounter: 06/20/17 Time of Encounter: 10:30 (1) Urinary tract infection Current Visit: Yes Status: Acute Assessment and plan: Clinically improving. Antibiotics per primary team. S/P aceves catheter. Defer management to Urology but may benefit from intermittent straight catheterization/aceves at discharge. Qualifiers: Urinary tract infection type: acute cystitis Hematuria presence: with hematuria Qualified Code(s): N30.01 - Acute cystitis with hematuria (2) Prostate cancer Current Visit: Yes Status: Acute Assessment and plan: Bony disease affecting pubis and left scapula. Small, nonspecific nodules concerning for metastases. PSA stable. No acute need for intervention. Placed on casodex which may temporize things. Continue with supportive pain medication and please provide week's supply at discharge. Will d/w radonc and see if radiotherapy can be pursued given prior treatment to both these areas. Continue casodex. He has an appt scheduled with me on Thursday this week. We will sign off. Oncology: Subj Interval history: Had difficulty urinating this morning and aceves placed by Dr. Hubbard. This has helped his pain. Low grade fever of 99.7 at midnight. No chills or shakes. WBC remains elevated. Pain is controlled, and he is feeling better in general. - Constitutional Vitals: Vital Signs Temp Pulse Resp BP Pulse Ox 06/20/17 07:30 99.4 F 82 19 145/53 98 06/20/17 05:33 98.7 F 84 16 148/94 96 06/19/17 23:47 99.7 F H 76 17 119/67 96 06/19/17 21:48 99.6 F 69 16 127/51 94 06/19/17 15:16 98.7 F 67 16 139/57 95 06/19/17 11:14 98.8 F 68 16 104/48 94 Intake and Output 06/20/17 06/20/17 06/20/17 00:59 08:59 16:59 Intake Total 1040 / 1040 1000 / 1000 Output Total 200 / 200 Balance 1040 / 1040 800 / 800 Intake: IV Fluids 800 / 800 1000 / 1000 0.9 % Sodium Chloride 1,000 ML 800 / 800 1000 / 1000 @ 100 mls/hr IVC .Q10H MARYCRUZ Rx#: [id number] Oral 240 / 240 0 / 0 Output: Urine 200 / 200 Other: Meal Dinner Breakfast Percent of Meal Consumed 25% 0% Weight 67.3 kg Patient Weight 06/21/17 00:59 Weight 67.3 kg General appearance: average body habitus, cooperative - Head Head exam: Present: atraumatic, normal inspection, normocephalic - Eye Eye exam: Present: normal appearance, conjuntiva pink, sclera anicteric - ENT ENT exam: Present: mucous membranes moist, normal oropharynx - Neck Neck exam: Present: full ROM, normal inspection - Respiratory Respiratory exam: Present: CTAB - Cardiovascular Cardiovascular exam: Present: RRR - GI/Abdominal GI/Abdominal exam: Present: normal bowel sounds, soft - Neurological Exam Neurological exam: Present: alert, CN II-XII intact, oriented X3, no focal deficits - Skin Skin exam: Present: normal color Oncology: Obj Data - Labs CBC & Chem 7: 06/20/17 04:30 06/20/17 04:30 Labs: Laboratory Results - last 24 hr 06/19/17 06/20/17 06/20/17 18:15 04:30 04:30 WBC 20.7 H RBC 2.81 L Hgb 8.7 L Hct 27.3 L MCV 97.2 MCH 31.0 MCHC 31.9 RDW 13.1 Plt Count 221 MPV 9.4 Immature Gran % 0.8 Seg Neutrophils % 86.2 Lymphocytes % 7.3 Monocytes % 5.3 Eosinophils % 0.2 Basophils % 0.2 Neutrophils # 17.8 H Lymphocytes # 1.5 Monocytes # 1.1 Eosinophils # 0.0 Basophils # 0.1 Sodium 134 L Potassium 5.1 Chloride 106 Carbon Dioxide 22 L BUN 34 H Creatinine 2.70 H Est GFR ( Amer) 27 L Est GFR (Non-Af Amer) 23 L BUN/Creatinine Ratio 13 Glucose 109 H Calculated Osmolality 286 Calcium 7.8 L Phosphorus 3.6 Magnesium 1.7 Prostate Specific Ag 33.84 H - Impressions Impressions Chest CT 06/19/17 17:42 IMPRESSION: 1. Multiple bilateral pulmonary nodules without calcifications. Largest measures approximately 0.8 cm in the right lower lobe. Findings are suspicious for metastatic disease which cannot be excluded. 2. Sclerotic lesion of the left scapula suspicious for osseous metastases. 3. Multiple calcified pleural plaques. Findings are nonspecific but can be seen with prior asbestos exposure. 4. Enlarged and calcified mediastinal lymph nodes - likely sequela of prior granulomatous disease. 5. Hiatal hernia. D/ / 06/19/2017 21:00:17 Alberto Walker MD / [facility] Interpreting Provider: Alberto Walker MD Bone Scan Nuclear Medicine 06/20/17 07:00 IMPRESSION: Abnormal study. Asymmetric radiotracer uptake in the left symphysis pubis and left shoulder area corresponding to sclerotic lesions in the left scapula and left symphysis pubis on recent CT scans. D/ / Angy Horne MD / Angy Horne MD Interpreting Provider: Angy Horne MD Consult Discharge Plan - Plan Referrals: Odell Marshall MD [Primary Care Provider] -
--- NOTE | 2017-06-20 12:28 | Palliative Progress Note ---
Date of Encounter: 06/20/17 Time of Encounter: 11:15 - Assessment and plan (1) Weakness generalized Current Visit: Yes Status: Acute Assessment and plan: PT/OT evaluation appreciated. Reported may d/c home with OT/PT. Patient's daughter presents concern over ability to self care as home most of day independently. Patient wishes to return home. (2) Goals of care, counseling/discussion Current Visit: Yes Status: Acute Assessment and plan: Spoke with patient and daughter at length regarding various discharge planning options. Patient's concern is if he applies for Medicaid the state will take his home. Patient's daughter would like for patient to be able to return home with hospice as she feels Cancer treatment isn't really helping and wants him to remain comfortable. Patient would consider Re[facility] at discharge. Patient's daughter wishes to talk with family members and patient regarding discharge planning; will follow up tomorrow regarding any decisions regarding discharge planning as patient's family does not feel he would be safe going home alone. I spent 45 minutes face to face with the patient, of which more than 25 minutes was spend in counseling and coordination of care for discharge planning. (3) Prostate cancer Current Visit: Yes Status: Acute Assessment and plan: Continue treatment per Oncology Recommendations. (4) Urinary tract infection Current Visit: Yes Status: Acute Qualifiers: Urinary tract infection type: acute cystitis Hematuria presence: with hematuria Qualified Code(s): N30.01 - Acute cystitis with hematuria - Time Spent With Patient Total time spent is greater than 50% in coordination of care (as documented) at patient's floor/unit and/or counseling patient: - Subjective Interval history: Met with patient and his daughter, Madison. Patient resting quietly in bed at this time. Patient reports he desires to continue aggressive cancer treatment at this time. Patient's daughter inquired when patient would be eligible for hospice care; informed when he decides to stop cancer treatment. Daughter reports he has a follow up appointment this week with Oncology. Patient decided to deter all questions regarding discharge planning to daughter Madison. Patient denies pain, anxiety, nausea, and vomiting during assessment. Patient has received two doses of [place] and two doses of Percocet in the last 24 hours. Encouraged patient to ask for pain medication as needed. - Constitutional Vitals: Abnormal lab results WBC 20.7 K/mcL (4.3-11.1) H 06/20/17 04:30 RBC 2.81 M/mcL (4.19-5.50) L 06/20/17 04:30 Hgb 8.7 g/dL (12.9-16.9) L 06/20/17 04:30 Hct 27.3 % (37.5-50.1) L 06/20/17 04:30 Neutrophils # 17.8 K/mcL (1.6-8.9) H 06/20/17 04:30 Sodium 134 mEq/L (136-145) L 06/20/17 04:30 Carbon Dioxide 22 mEq/L (23-29) L 06/20/17 04:30 BUN 34 mg/dL (8-23) H 06/20/17 04:30 Creatinine 2.70 mg/dL (0.70-1.30) H 06/20/17 04:30 Est GFR ( Amer) 27 (> 60) L 06/20/17 04:30 Est GFR (Non-Af Amer) 23 (> 60) L 06/20/17 04:30 Glucose 109 mg/dL (70-105) H 06/20/17 04:30 Calcium 7.8 mg/dL (8.6-10.3) L 06/20/17 04:30 Prostate Specific Ag 33.84 ng/mL (Less than 4.00) H 06/19/17 18:15 Urine Color Red (Yellow) A 06/18/17 16:50 Urine Clarity Turbid (Clear) A 06/18/17 16:50 Urine Protein 100 mg/dL (Neg-Trace) H 06/18/17 16:50 Urine Ketones Trace mg/dL (Negative) H 06/18/17 16:50 Urine Blood Large (Negative) H 06/18/17 16:50 Urine Nitrite Positive (Negative) A 06/18/17 16:50 Urine Bilirubin Small (Negative) H 06/18/17 16:50 Ur Leukocyte Esterase Large (Negative) H 06/18/17 16:50 Urine Microscopic RBC TNTC per hpf (0-3) H 06/18/17 16:50 Urine Microscopic WBC TNTC per hpf (0-3) H 06/18/17 16:50 Ur Squamous Epith Cells Many per lpf (None-Few) H 06/18/17 16:50 Urine Bacteria Moderate per hpf (None-Few) H 06/18/17 16:50 Ur Culture Indicated? NO. (NO) A 06/18/17 16:50 General appearance: Present: cooperative, no acute distress - Head Head exam: Present: atraumatic, normal inspection - Eye Eye exam: Present: normal appearance, PERRL. Absent: nystagmus, periorbital swelling, periorbital tenderness Pupils: Present: normal accommodation, PERRL - ENT ENT exam: Present: mucous membranes moist, normal external ear exam - Neck Neck exam: Present: full ROM, normal inspection - Respiratory Respiratory exam: Present: CTAB. Absent: wheezes - Cardiovascular Cardiovascular exam: Present: +S1, +S2 - GI/Abdominal GI/Abdominal exam: Present: normal bowel sounds, soft. Absent: tenderness - Rectal Rectal exam: Present: deferred - Extremities Exam Extremities exam: Present: full ROM, normal capillary refill, normal inspection. Absent: pedal edema - Neurological Exam Neurological exam: Present: alert, oriented X3 - Psychiatric Psychiatric exam: Present: normal affect, normal mood. Absent: anxious - Skin Skin exam: Present: dry, intact, warm Palliative Quality Palliative Quality: Screen for Code Status: Yes, Screen for Goals of Care: Yes, Screen for Pain: Yes, If Pain Regimen Started, Initiate Bowel Regimen: NA, Screen for Nausea/Vomitting: Yes Code Status: 06/18/17 21:05 Resuscitation Status: Active [RES] Routine Comment: Resuscitation Status: Full Code 06/19/17 11:12 DNR [Resuscitation Status: Active] [RES] Routine Comment: Resuscitation Status: [id number] - Labs CBC & Chem 7: 06/20/17 04:30 06/20/17 04:30 Labs: Laboratory Results - last 24 hr 06/19/17 06/20/17 06/20/17 18:15 04:30 04:30 WBC 20.7 H RBC 2.81 L Hgb 8.7 L Hct 27.3 L MCV 97.2 MCH 31.0 MCHC 31.9 RDW 13.1 Plt Count 221 MPV 9.4 Immature Gran % 0.8 Seg Neutrophils % 86.2 Lymphocytes % 7.3 Monocytes % 5.3 Eosinophils % 0.2 Basophils % 0.2 Neutrophils # 17.8 H Lymphocytes # 1.5 Monocytes # 1.1 Eosinophils # 0.0 Basophils # 0.1 Sodium 134 L Potassium 5.1 Chloride 106 Carbon Dioxide 22 L BUN 34 H Creatinine 2.70 H Est GFR ( Amer) 27 L Est GFR (Non-Af Amer) 23 L BUN/Creatinine Ratio 13 Glucose 109 H Calculated Osmolality 286 Calcium 7.8 L Phosphorus 3.6 Magnesium 1.7 Prostate Specific Ag 33.84 H - Impressions Impressions Chest CT 06/19/17 17:42 IMPRESSION: 1. Multiple bilateral pulmonary nodules without calcifications. Largest measures approximately 0.8 cm in the right lower lobe. Findings are suspicious for metastatic disease which cannot be excluded. 2. Sclerotic lesion of the left scapula suspicious for osseous metastases. 3. Multiple calcified pleural plaques. Findings are nonspecific but can be seen with prior asbestos exposure. 4. Enlarged and calcified mediastinal lymph nodes - likely sequela of prior granulomatous disease. 5. Hiatal hernia. D/ / 06/19/2017 21:00:17 Alberto Walker MD / [facility] Interpreting Provider: Alberto Walker MD Bone Scan Nuclear Medicine 06/20/17 07:00 IMPRESSION: Abnormal study. Asymmetric radiotracer uptake in the left symphysis pubis and left shoulder area corresponding to sclerotic lesions in the left scapula and left symphysis pubis on recent CT scans. D/ / 06/20/2017 10:46:02 Angy Horne MD / [facility] Interpreting Provider: Angy Horne MD Abdomen/Pelvis CT 06/20/17 07:46 IMPRESSION: 1. There is been interval development of left hydronephrosis and hydroureter and interval development of right caliectasis with bilateral perinephric stranding. No obstructing calculus is noted in either ureter. Findings may be related to infection or reflux. These represent new findings since study of two days ago. 2. Postsurgical bowel changes in the upper abdomen without associated inflammation or mass. 3. Postsurgical changes in the rectal area with some perirectal stranding and presacral soft tissue mass and scar, unchanged. 4. Indwelling Espinoza catheter in the bladder. However, bladder gaspar are thickened and nodular. This may be related to cystitis or postradiation change. 5. Basilar pulmonary nodules suspicious for metastatic disease. Sclerotic lesion of left pubic bone. 6. Please reference radionuclide bone scan report of the same day. D/ / 06/20/2017 11:27:04 Angy Horne MD / [facility] Interpreting Provider: Angy Horne MD Consult Discharge Plan - Plan Referrals: Odell Marshall MD [Primary Care Provider] -
[2017-06-20] MEDS: Bicalutamide 50 MG TABLET PO SCH (13:03)
[2017-06-20] MEDS: Piperacillin/Tazobactam 3.375 GM in 0.9 % Sodium Chloride Mini Bag 100 ML IVPB SCH (16:34)
[2017-06-21] MEDS: *HR* HYDROcodone/Acet 5/325 mg TABLET PO PRN ×3 (00:04→22:55)
[2017-06-21] MEDS: 0.9 % Sodium Chloride 1,000 ML IVC SCH ×3 (02:42→22:55)
[2017-06-21 04:30] LABS: Basophils % 0.2 %; Eosinophils # 0.2 K/mcL (0.0-0.6); Eosinophils % 1.2 %; Hematocrit 23.4 % (37.5-50.1); Hemoglobin 7.4 g/dL (12.9-16.9); Immature Granulocytes % 0.4 % (0-4); Lymphocytes # 1.7 K/mcL (0.6-4.6); Lymphocytes % 10.3 %; Mean Corpuscular HGB Conc 31.6 g/dL (31.6-35.5); Mean Corpuscular Hemoglobin 31.1 pg (28.0-33.3); Mean Corpuscular Volume 98.3 fL (83.0-100.0); Mean Platelet Volume 9.6 fL (9.4-12.4); Monocytes # 0.9 K/mcL (0.0-1.3); Monocytes % 5.2 %; Neutrophils # 13.9 K/mcL (1.6-8.9); Platelet Count 203 K/mcL (140-400); Red Blood Count 2.38 M/mcL (4.19-5.50); Red Cell Distribution Width 13.2 % (11.5-14.5); Segmented Neutrophils % 82.7 %
[2017-06-21 05:07] LABS: Calcium 7.1 mg/dL (8.6-10.3); Potassium 4.4 mEq/L (3.5-5.1)
[2017-06-21] MEDS: Piperacillin/Tazobactam 3.375 GM in 0.9 % Sodium Chloride Mini Bag 100 ML IVPB SCH ×2 (05:26→16:19)
[2017-06-21] MEDS: *HR* Heparin 5,000 UNIT/ML VIAL SQ SCH ×2 (05:26→19:06)
--- NOTE | 2017-06-21 07:21 | Internal Med Progress Note ---
Date of Encounter: 06/21/17 Time of Encounter: 07:15 - Assessment and plan (1) Sepsis Current Visit: Yes Status: Acute Assessment and plan: Sepsis 2/2 to pyelonephritis and staph aureus UTI. On zosyn. f/U blood cultures. CT scan shows hydronephrosis and perinephric stranding. Urology following. Urine cultures came back positive for staph aureus. Vancomycin added to regimen. WBC trending down Qualifiers: Sepsis type: sepsis due to unspecified organism Qualified Code(s): A41.9 - Sepsis, unspecified organism (2) Acute kidney injury Current Visit: Yes Status: Acute Assessment and plan: ANN vs Ann on CKD. Monitor creatinine. IV fluids. Obtain CT abdomen showed new left hyronephrosis. Urology following. creatinine trending down (3) Hydronephrosis Current Visit: Yes Status: Acute Assessment and plan: Patient has aceves in place. Urology following Qualifiers: Hydronephrosis type: unspecified Qualified Code(s): N13.30 - Unspecified hydronephrosis (4) Urinary tract infection Current Visit: Yes Status: Acute Assessment and plan: Switched rocephin to zosyn 2/2 to worsening leukocytosis. Urine cultures showed staph aureus. Vancomycin added. F/U blood cultures.New CT scan showed bilateral perinephric stranding and hydronephrosis. Urology following Qualifiers: Urinary tract infection type: acute cystitis Hematuria presence: with hematuria Qualified Code(s): N30.01 - Acute cystitis with hematuria (5) Prostate cancer Current Visit: Yes Status: Acute Assessment and plan: Patient has remote metastasis to bone and possible to lung as well. CT abdomen shows new pulmonary nodules. Bone scan shows new areas of uptake in left scapula. Palliative care following and patient is now DNR (6) CAD (coronary artery disease) Current Visit: Yes Status: Acute Assessment and plan: continue home meds Qualifiers: Coronary Disease-Associated Artery/Lesion type: [place] artery [place] vs. transplanted heart: [place] heart Associated angina: without angina Qualified Code(s): I25.10 - Atherosclerotic heart disease of [place] coronary artery without angina pectoris (7) Hypertension Current Visit: Yes Status: Acute Assessment and plan: Continue home medications. Closely monitor BP Qualifiers: Hypertension type: essential hypertension Qualified Code(s): I10 - Essential (primary) hypertension (8) DVT prophylaxis Current Visit: Yes Status: Acute Assessment and plan: Heparin subcutaneously - Time Spent With Patient Total time spent is greater than 50% in coordination of care (as documented) at patient's floor/unit and/or counseling patient: - Subjective Interval history: No acute events overnight. Had bone scan and CT abdomen done - Constitutional Vitals: Temp Pulse Resp BP Pulse Ox 98.4 F 76 18 119/52 96 06/21/17 07:05 06/21/17 07:05 06/21/17 07:05 06/21/17 07:05 06/21/17 07:05 General appearance: Present: A&O X 3, no acute distress, answers questions appropriately - Head Head exam: Present: atraumatic, normocephalic - Eye Eye exam: Present: PERRL, conjuntiva pink, sclera anicteric Pupils: Present: PERRL - Neck Neck exam general surgery: Present: supple, trachea midline. Absent: lymphadenopathy - Respiratory Respiratory exam: Present: CTAB. Absent: accessory muscle use, rales, rhonchi, wheezes - Cardiovascular Cardiovascular exam: Present: RRR, +S1, +S2. Absent: diastolic murmur, gallop, rubs, systolic murmur - GI/Abdominal GI/Abdominal exam: Present: normal bowel sounds, soft, no peritoneal signs. Absent: distended, tenderness - Extremities Exam Extremities exam: Present: warm, radial pulses palpable and symmetrical. Absent : calf tenderness, cyanotic, pedal edema - Neurological Exam Neurological exam: Present: CN II-XII intact, oriented X3, no focal deficits. Absent: pronater drift, facial droop, speech deficit - Skin Skin exam: Present: dry, intact Internal Medicine: Result - Labs CBC & Chem 7: 06/21/17 03:55 06/21/17 03:55 Labs: Short CBC 06/21/17 Range/Units 03:55 WBC 16.8 H (4.3-11.1) K/mcL Hgb 7.4 L (12.9-16.9) g/dL Hct 23.4 L (37.5-50.1) % Plt Count 203 (140-400) K/mcL Neutrophils # 13.9 H (1.6-8.9) K/mcL BMP 06/21/17 03:55 Sodium 135 L Potassium 4.4 Chloride 110 H Carbon Dioxide 21 L BUN 31 H Creatinine 1.74 H Glucose 101 Calcium 7.1 L Consult Discharge Plan - Plan Referrals: Odell Marshall MD [Primary Care Provider] -
[2017-06-21] MEDS: Lisinopril 20 MG TABLET PO SCH (08:26)
[2017-06-21] MEDS: Gabapentin 100 MG CAPSULE PO SCH (08:26)
[2017-06-21] MEDS: Bicalutamide 50 MG TABLET PO SCH (08:26)
[2017-06-21] MEDS: Aspirin Enteric Coated 81 MG Tablet PO SCH (08:26)
--- NOTE | 2017-06-21 10:12 | Palliative Progress Note ---
Date of Encounter: 06/21/17 Time of Encounter: 08:45 - Assessment and plan (1) Weakness generalized Current Visit: Yes Status: Acute Assessment and plan: Patient had decided to go home with hospice. Patient's family reports that there will be no rehab. Goal is to keep comfortable. (2) Goals of care, counseling/discussion Current Visit: Yes Status: Acute Assessment and plan: Spoke with patient and family regarding discharge planning. Patient's son reports that he and Madison are working together to arrange for care at home. Current tentative plan to discharge home with hospice; undecided on which company at this time as still working out the details. Patient requests this to remain a tentative discharge plan and will be finalized tomorrow. Patient's daughter had previously mentioned possibly [facility]; this is to bed decided for certain tomorrow. Palliative care and SW will follow up. (3) Prostate cancer Current Visit: Yes Status: Acute Assessment and plan: Patient has informed this publications writer he is wishing to stop cancer treatment and pursuit hospice at home with family care. (4) Urinary tract infection Current Visit: Yes Status: Acute Qualifiers: Urinary tract infection type: acute cystitis Hematuria presence: with hematuria Qualified Code(s): N30.01 - Acute cystitis with hematuria (5) Anxiety Current Visit: Yes Status: Acute Assessment and plan: Patient reports increasing anxiety. No anxiety medications on record. Will order Ativan 0.5 mg PO Q4H PRN for anxiety. - Time Spent With Patient Total time spent is greater than 50% in coordination of care (as documented) at patient's floor/unit and/or counseling patient: - Subjective Interval history: Met with patient and his sonJimmy. Patient resting quietly in bed at this time. Patient reports pain is stable and no pain during assessment with current pain meds when he is not moving; however, increase in pain with movement up to a 10/10. Patient has had one dose of Act[place] and Percocet in the last 24 hours. Patient denies nausea/vomiting or dyspnea. Patient reports he is feeling much better now. Patient does report his anxiety has been increasing. Patient is in a very jovial mood and appears quite happy with his decisions with family assistance. Patient is able to turn in bed now independently, follows commands, and requires assistance with movement out side of the bed. - Constitutional Vitals: Abnormal lab results WBC 16.8 K/mcL (4.3-11.1) H 06/21/17 03:55 RBC 2.38 M/mcL (4.19-5.50) L 06/21/17 03:55 Hgb 7.4 g/dL (12.9-16.9) L 06/21/17 03:55 Hct 23.4 % (37.5-50.1) L 06/21/17 03:55 Neutrophils # 13.9 K/mcL (1.6-8.9) H 06/21/17 03:55 Sodium 135 mEq/L (136-145) L 06/21/17 03:55 Chloride 110 mEq/L (98-107) H 06/21/17 03:55 Carbon Dioxide 21 mEq/L (23-29) L 06/21/17 03:55 BUN 31 mg/dL (8-23) H 06/21/17 03:55 Creatinine 1.74 mg/dL (0.70-1.30) H 06/21/17 03:55 Est GFR ( Amer) 46 (> 60) L 06/21/17 03:55 Est GFR (Non-Af Amer) 38 (> 60) L 06/21/17 03:55 Calcium 7.1 mg/dL (8.6-10.3) L 06/21/17 03:55 Prostate Specific Ag 33.84 ng/mL (Less than 4.00) H 06/19/17 18:15 Urine Color Red (Yellow) A 06/18/17 16:50 Urine Clarity Turbid (Clear) A 06/18/17 16:50 Urine Protein 100 mg/dL (Neg-Trace) H 06/18/17 16:50 Urine Ketones Trace mg/dL (Negative) H 06/18/17 16:50 Urine Blood Large (Negative) H 06/18/17 16:50 Urine Nitrite Positive (Negative) A 06/18/17 16:50 Urine Bilirubin Small (Negative) H 06/18/17 16:50 Ur Leukocyte Esterase Large (Negative) H 06/18/17 16:50 Urine Microscopic RBC TNTC per hpf (0-3) H 06/18/17 16:50 Urine Microscopic WBC TNTC per hpf (0-3) H 06/18/17 16:50 Ur Squamous Epith Cells Many per lpf (None-Few) H 06/18/17 16:50 Urine Bacteria Moderate per hpf (None-Few) H 06/18/17 16:50 Ur Culture Indicated? NO. (NO) A 06/18/17 16:50 General appearance: Present: cooperative, mild distress - Head Head exam: Present: atraumatic, normal inspection - Eye Eye exam: Present: EOMI, PERRL. Absent: periorbital swelling, periorbital tenderness Pupils: Present: normal accommodation, PERRL - ENT ENT exam: Present: mucous membranes moist, normal external ear exam - Neck Neck exam: Present: full ROM, normal inspection - Respiratory Respiratory exam: Present: CTAB. Absent: respiratory distress - Cardiovascular Cardiovascular exam: Present: RRR, +S1, +S2 - GI/Abdominal GI/Abdominal exam: Present: normal bowel sounds, soft. Absent: tenderness - Rectal Rectal exam: Present: deferred - Extremities Exam Extremities exam: Present: full ROM, normal capillary refill, normal inspection. Absent: calf tenderness, pedal edema - Back Exam Back exam: Present: full ROM, normal inspection - Neurological Exam Neurological exam: Present: alert, oriented X3, strengths equal and symetr throughout. Absent: altered - Psychiatric Psychiatric exam: Present: anxious (by report.), normal affect, normal mood - Skin Skin exam: Present: dry, intact, warm Palliative Quality Palliative Quality: Screen for Code Status: Yes, Screen for Goals of Care: Yes, Screen for Pain: Yes, If Pain Regimen Started, Initiate Bowel Regimen: NA, Screen for Nausea/Vomitting: Yes - Labs CBC & Chem 7: 06/21/17 03:55 06/21/17 03:55 Labs: Laboratory Results - last 24 hr 06/21/17 06/21/17 03:55 03:55 WBC 16.8 H RBC 2.38 L Hgb 7.4 L Hct 23.4 L MCV 98.3 MCH 31.1 MCHC 31.6 RDW 13.2 Plt Count 203 MPV 9.6 Immature Gran % 0.4 Seg Neutrophils % 82.7 Lymphocytes % 10.3 Monocytes % 5.2 Eosinophils % 1.2 Basophils % 0.2 Neutrophils # 13.9 H Lymphocytes # 1.7 Monocytes # 0.9 Eosinophils # 0.2 Basophils # 0.0 Sodium 135 L Potassium 4.4 Chloride 110 H Carbon Dioxide 21 L BUN 31 H Creatinine 1.74 H Est GFR ( Amer) 46 L Est GFR (Non-Af Amer) 38 L BUN/Creatinine Ratio 18 Glucose 101 Calculated Osmolality 287 Calcium 7.1 L Consult Discharge Plan - Plan Referrals: Odell Marshall MD [Primary Care Provider] -
--- NOTE | 2017-06-21 16:25 | Urology Progress Note ---
Date of Encounter: 06/21/17 Time of Encounter: 16:23 - Assessment and Plan (1) Prostate carcinoma Current Visit: No Status: Acute Assessment and plan: 82-year-old man with metastatic prostate cancer and urinary retention. I placed a Espinoza catheter yesterday. He has some new left hydronephrosis. This is likely related to bladder outlet obstruction. His renal function has improved from yesterday to today after the catheter was placed. At this point I do not think he needs to have a stent placed. I would recommend repeating imaging in a few days to see if there is improvement in the hydronephrosis with the catheter in place. (2) Urinary tract infection Current Visit: Yes Status: Acute Assessment and plan: MRSA is growing on the urine. He remains on IV antibiotic. We will follow. Qualifiers: Urinary tract infection type: acute cystitis Hematuria presence: with hematuria Qualified Code(s): N30.01 - Acute cystitis with hematuria Progress Note Narrative: Doing well today. Urine culture is growing out MRSA. Catheter is draining tea to light pink-colored urine. He says he is doing well. He scan which showed some new onset left hydronephrosis. His bladder was trabeculated. Objective Initial Vital Signs Temp Pulse Resp BP Pulse Ox 98.4 F 79 22 114/88 92 06/18/17 15:43 06/18/17 15:43 06/18/17 15:43 06/18/17 15:43 06/18/17 15:43 - General physical appearance Present: well developed, well nourished, no distress - Respiratory Present: normal respiratory effort - Abdomen Present: soft - Genitourinary Urine Appearance: Present: Clear (Clear to light pink urine.) - Labs 06/21/17 03:55 06/21/17 03:55 Diabetes panel 06/21/17 Range/Units 03:55 Sodium 135 L (136-145) mEq/L Potassium 4.4 (3.5-5.1) mEq/L Chloride 110 H (98-107) mEq/L Carbon Dioxide 21 L (23-29) mEq/L BUN 31 H (8-23) mg/dL Creatinine 1.74 H (0.70-1.30) mg/dL Glucose 101 (70-105) mg/dL Calcium 7.1 L (8.6-10.3) mg/dL Calcium panel 06/21/17 Range/Units 03:55 Calcium 7.1 L (8.6-10.3) mg/dL Pituitary panel 06/21/17 Range/Units 03:55 Sodium 135 L (136-145) mEq/L Potassium 4.4 (3.5-5.1) mEq/L Chloride 110 H (98-107) mEq/L Carbon Dioxide 21 L (23-29) mEq/L BUN 31 H (8-23) mg/dL Creatinine 1.74 H (0.70-1.30) mg/dL Glucose 101 (70-105) mg/dL Calcium 7.1 L (8.6-10.3) mg/dL Adrenal panel 06/21/17 Range/Units 03:55 Sodium 135 L (136-145) mEq/L Potassium 4.4 (3.5-5.1) mEq/L Chloride 110 H (98-107) mEq/L Carbon Dioxide 21 L (23-29) mEq/L BUN 31 H (8-23) mg/dL Creatinine 1.74 H (0.70-1.30) mg/dL Glucose 101 (70-105) mg/dL Calcium 7.1 L (8.6-10.3) mg/dL Consult Discharge Plan - Plan Referrals: Odell Marshall MD [Primary Care Provider] -
[2017-06-21] MEDS: *HR* OxyCODONE/APAP 5/325 TABLET PO PRN (20:03)
[2017-06-22 03:23] LABS: Basophils % 0.3 %; Eosinophils # 0.4 K/mcL (0.0-0.6); Eosinophils % 3.4 %; Hemoglobin 7.4 g/dL (12.9-16.9); Immature Granulocytes % 0.7 % (0-4); Lymphocytes # 1.5 K/mcL (0.6-4.6); Lymphocytes % 11.8 %; Mean Corpuscular HGB Conc 32.2 g/dL (31.6-35.5); Mean Corpuscular Hemoglobin 31.8 pg (28.0-33.3); Mean Corpuscular Volume 98.7 fL (83.0-100.0); Mean Platelet Volume 9.5 fL (9.4-12.4); Monocytes # 0.8 K/mcL (0.0-1.3); Monocytes % 6.2 %; Neutrophils # 10.2 K/mcL (1.6-8.9); Platelet Count 188 K/mcL (140-400); Red Blood Count 2.33 M/mcL (4.19-5.50); Red Cell Distribution Width 13.2 % (11.5-14.5); Segmented Neutrophils % 77.6 %
[2017-06-22 03:39] LABS: BUN/Creatinine Ratio 16 (6-26); Blood Urea Nitrogen 19 mg/dL (8-23); Calcium 7.5 mg/dL (8.6-10.3); Carbon Dioxide 21 mEq/L (23-29); Chloride 113 mEq/L (98-107); Glucose 100 mg/dL (70-105); Osmolality,Calculated 284 (280-300); Potassium 4.5 mEq/L (3.5-5.1); Sodium 136 mEq/L (136-145); eGFR For African Americans > 60 (> 60); eGFR For Non-African Americans 60 (> 60)
[2017-06-22] MEDS: Piperacillin/Tazobactam 3.375 GM in 0.9 % Sodium Chloride Mini Bag 100 ML IVPB SCH (05:27)
[2017-06-22] MEDS: *HR* Heparin 5,000 UNIT/ML VIAL SQ SCH ×2 (05:32→16:20)
[2017-06-22] MEDS: *HR* OxyCODONE/APAP 5/325 TABLET PO PRN ×2 (06:10→16:24)
--- NOTE | 2017-06-22 07:21 | Internal Med Progress Note ---
Date of Encounter: 06/22/17 Time of Encounter: 07:20 - Assessment and plan (1) Sepsis Current Visit: Yes Status: Acute Assessment and plan: Sepsis 2/2 to pyelonephritis and staph aureus UTI. On vanc and zosyn. Blood cultures negative. CT scan shows hydronephrosis and perinephric stranding. Urology following. WBC trending down. Aceves catheter in place. Appreciate ID recs Qualifiers: Sepsis type: methicillin resistant Staphylococcus aureus Qualified Code(s) : A41.02 - Sepsis due to Methicillin resistant Staphylococcus aureus (2) Acute kidney injury Current Visit: Yes Status: Acute Assessment and plan: ANN vs Ann on CKD. Monitor creatinine. IV fluids. Obtain CT abdomen showed new left hyronephrosis. Urology following. creatinine trending down (3) Hydronephrosis Current Visit: Yes Status: Acute Assessment and plan: Patient has aceves in place. Urology following. Plan to repeat CT per urology recs. No indication for stent placement at this time Qualifiers: Hydronephrosis type: unspecified Qualified Code(s): N13.30 - Unspecified hydronephrosis (4) Urinary tract infection Current Visit: Yes Status: Acute Assessment and plan: Switched rocephin to zosyn 2/2 to worsening leukocytosis. Urine cultures showed staph aureus. Vancomycin added. F/U blood cultures.New CT scan showed bilateral perinephric stranding and hydronephrosis. Urology following Qualifiers: Urinary tract infection type: acute pyelonephritis Qualified Code(s): N10 - Acute pyelonephritis (5) Prostate cancer Current Visit: Yes Status: Acute Assessment and plan: Patient has remote metastasis to bone and possible to lung as well. CT abdomen shows new pulmonary nodules. Bone scan shows new areas of uptake in left scapula. Palliative care following and patient is now DNR (6) CAD (coronary artery disease) Current Visit: Yes Status: Chronic Assessment and plan: continue home meds Qualifiers: Coronary Disease-Associated Artery/Lesion type: [place] artery [place] vs. transplanted heart: [place] heart Associated angina: without angina Qualified Code(s): I25.10 - Atherosclerotic heart disease of [place] coronary artery without angina pectoris (7) Hypertension Current Visit: Yes Status: Chronic Assessment and plan: Continue home medications. Closely monitor BP Qualifiers: Hypertension type: essential hypertension Qualified Code(s): I10 - Essential (primary) hypertension (8) DVT prophylaxis Current Visit: Yes Status: Acute Assessment and plan: Heparin subcutaneously - Time Spent With Patient Total time spent is greater than 50% in coordination of care (as documented) at patient's floor/unit and/or counseling patient: - Subjective Interval history: No acute events overnight. Had bone scan and CT abdomen done - Constitutional Vitals: Temp Pulse Resp BP Pulse Ox 99.2 F 71 17 153/61 94 06/22/17 04:47 06/22/17 04:47 06/22/17 04:47 06/22/17 04:47 06/22/17 04:47 General appearance: Present: A&O X 3, no acute distress, answers questions appropriately - Head Head exam: Present: atraumatic, normocephalic - Eye Eye exam: Present: PERRL, conjuntiva pink, sclera anicteric Pupils: Present: PERRL - Neck Neck exam general surgery: Present: supple, trachea midline. Absent: lymphadenopathy - Respiratory Respiratory exam: Present: CTAB. Absent: accessory muscle use, rales, rhonchi, wheezes - Cardiovascular Cardiovascular exam: Present: RRR, +S1, +S2. Absent: diastolic murmur, gallop, rubs, systolic murmur - GI/Abdominal GI/Abdominal exam: Present: normal bowel sounds, soft, no peritoneal signs. Absent: distended, tenderness - Additional comments: aceves catheter in place - Extremities Exam Extremities exam: Present: warm, radial pulses palpable and symmetrical. Absent : calf tenderness, cyanotic, pedal edema - Neurological Exam Neurological exam: Present: CN II-XII intact, oriented X3, no focal deficits. Absent: pronater drift, facial droop, speech deficit - Skin Skin exam: Present: dry, intact Internal Medicine: Result - Labs CBC & Chem 7: 06/22/17 02:47 06/22/17 02:47 Labs: Short CBC 06/22/17 Range/Units 02:47 WBC 13.1 H (4.3-11.1) K/mcL Hgb 7.4 L (12.9-16.9) g/dL Hct 23.0 L (37.5-50.1) % Plt Count 188 (140-400) K/mcL Neutrophils # 10.2 H (1.6-8.9) K/mcL [facility] 06/22/17 02:47 Sodium 136 Potassium 4.5 Chloride 113 H Carbon Dioxide 21 L BUN 19 Creatinine 1.17 Glucose 100 Calcium 7.5 L Consult Discharge Plan - Plan Referrals: Odell Marshall MD [Primary Care Provider] -
[2017-06-22] MEDS: Bicalutamide 50 MG TABLET PO SCH (08:25)
[2017-06-22] MEDS: Aspirin Enteric Coated 81 MG Tablet PO SCH (08:25)
[2017-06-22] MEDS: Gabapentin 100 MG CAPSULE PO SCH (08:25)
[2017-06-22] MEDS: Lisinopril 20 MG TABLET PO SCH (08:25)
--- NOTE | 2017-06-22 08:52 | Palliative Progress Note ---
Date of Encounter: 06/22/17 Time of Encounter: 08:40 - Assessment and plan (1) Cancer associated pain Current Visit: Yes Status: Acute Assessment and plan: Continue with [place] for moderate pain, and Percocet for more severe pain. Has utilized both x2 the last 24 hours. He would likely benefit from low dose long acting opioid, however, will d/w family when they arrive. (2) Anxiety Current Visit: Yes Status: Acute Assessment and plan: Continue low dose Lorazepam. Has not utilized. (3) Goals of care, counseling/discussion Current Visit: Yes Status: Acute Assessment and plan: Family discussing discharge plan and expected to have decision today. Will f/u when they arrive. (4) Urinary tract infection Current Visit: Yes Status: Acute Assessment and plan: Continues with IV antibiotics for MRSA UTI. Urology has been following. Qualifiers: Urinary tract infection type: acute cystitis Hematuria presence: with hematuria Qualified Code(s): N30.01 - Acute cystitis with hematuria (5) Prostate cancer Current Visit: Yes Status: Acute - Time Spent With Patient Total time spent is greater than 50% in coordination of care (as documented) at patient's floor/unit and/or counseling patient: 25 - 35 minutes - Subjective Interval history: Patient awake, alert and pleasant. C/o left shoulder pain with movement that he states is always there. Eating well - not happy with ground meat. + BM. Anxious to go home and spend some time with his dog. - Constitutional Vitals: Abnormal lab results WBC 13.1 K/mcL (4.3-11.1) H 06/22/17 02:47 RBC 2.33 M/mcL (4.19-5.50) L 06/22/17 02:47 Hgb 7.4 g/dL (12.9-16.9) L 06/22/17 02:47 Hct 23.0 % (37.5-50.1) L 06/22/17 02:47 Neutrophils # 10.2 K/mcL (1.6-8.9) H 06/22/17 02:47 Chloride 113 mEq/L (98-107) H 06/22/17 02:47 Carbon Dioxide 21 mEq/L (23-29) L 06/22/17 02:47 Calcium 7.5 mg/dL (8.6-10.3) L 06/22/17 02:47 Prostate Specific Ag 33.84 ng/mL (Less than 4.00) H 06/19/17 18:15 Urine Color Red (Yellow) A 06/18/17 16:50 Urine Clarity Turbid (Clear) A 06/18/17 16:50 Urine Protein 100 mg/dL (Neg-Trace) H 06/18/17 16:50 Urine Ketones Trace mg/dL (Negative) H 06/18/17 16:50 Urine Blood Large (Negative) H 06/18/17 16:50 Urine Nitrite Positive (Negative) A 06/18/17 16:50 Urine Bilirubin Small (Negative) H 06/18/17 16:50 Ur Leukocyte Esterase Large (Negative) H 06/18/17 16:50 Urine Microscopic RBC TNTC per hpf (0-3) H 06/18/17 16:50 Urine Microscopic WBC TNTC per hpf (0-3) H 06/18/17 16:50 Ur Squamous Epith Cells Many per lpf (None-Few) H 06/18/17 16:50 Urine Bacteria Moderate per hpf (None-Few) H 06/18/17 16:50 Ur Culture Indicated? NO. (NO) A 06/18/17 16:50 General appearance: Present: no acute distress - Respiratory Respiratory exam: Present: decreased breath sounds, CTAB - Cardiovascular Cardiovascular exam: Present: +S1, +S2 - Additional comments: Espinoza patent and draining dk yellow urine with some bloody appearing sediment. - Extremities Exam Extremities exam: Present: normal capillary refill, normal inspection - Neurological Exam Neurological exam: Present: alert, oriented X3, strengths equal and symetr throughout - Psychiatric Psychiatric exam: Present: normal affect, normal mood - Skin Skin exam: Present: dry, warm Palliative Quality Palliative Quality: Screen for Code Status: Yes, Screen for Goals of Care: Yes, Screen for Pain: Yes, If Pain Regimen Started, Initiate Bowel Regimen: NA, Screen for Nausea/Vomitting: Yes - Labs CBC & Chem 7: 06/22/17 02:47 06/22/17 02:47 Labs: Laboratory Results - last 24 hr 06/22/17 06/22/17 02:47 02:47 WBC 13.1 H RBC 2.33 L Hgb 7.4 L Hct 23.0 L MCV 98.7 MCH 31.8 MCHC 32.2 RDW 13.2 Plt Count 188 MPV 9.5 Immature Gran % 0.7 Seg Neutrophils % 77.6 Lymphocytes % 11.8 Monocytes % 6.2 Eosinophils % 3.4 Basophils % 0.3 Neutrophils # 10.2 H Lymphocytes # 1.5 Monocytes # 0.8 Eosinophils # 0.4 Basophils # 0.0 Sodium 136 Potassium 4.5 Chloride 113 H Carbon Dioxide 21 L BUN 19 Creatinine 1.17 Est GFR ( Amer) > 60 Est GFR (Non-Af Amer) 60 BUN/Creatinine Ratio 16 Glucose 100 Calculated Osmolality 284 Calcium 7.5 L Consult Discharge Plan - Plan Referrals: Odell Marshall MD [Primary Care Provider] -
[2017-06-22] MEDS: 0.9 % Sodium Chloride 1,000 ML IVC SCH ×2 (09:17→21:07)
--- NOTE | 2017-06-22 10:33 | Infectious Disease Consult ---
Date of Encounter: 06/22/17 Time of Encounter: 10:23 Assessment and Plan (1) Sepsis Status: Acute Assessment and plan: Severe sepsis: The patient had two SIRS criteria plus MELANY on admission. Likely secondary to UTI. Improved. WBC trending down. Tachypnea has resolved. Blood cultures drawn 06/18/17 are NGTD x 2 sets. Qualifiers: Sepsis type: methicillin resistant Staphylococcus aureus Qualified Code(s) : A41.02 - Sepsis due to Methicillin resistant Staphylococcus aureus (2) Urinary tract infection Status: Acute Assessment and plan: Causative organism: MRSA. Etiology unclear. No recent instrumentation of the bladder or history of using incontinence products. Blood cultures are NGTD x 2 sets so unlikely seeding from bacteremia. CT of the abdomen and pelvis completed 06/18/17 showed several bilateral pulmonary nodules concerning for metastatic disease and bladder wall thickening , likely secondary to previous radiation, and likely metastatic disease to the left pubis. Repeat CT of the abdomen 06/20/17 showed interval development of left hydronephrosis and left hydroureter without obstructing calculus. It also showed right caliectasis with bilateral perinephric stranding and re- demonstration of bladder wall thickening consistent with radiation changes vs. cystitis. Post-surgical changes noted in the upper abdomen without mass. There was noted to be post-surgical changes in the rectal area with perirectal stranding and presacral soft tissue mass and scarring, unchanged since previous imaging. Urology consulted. No surgical intervention required, but aceves has been placed. Clinically, the patient has improved. Discontinue Zosyn. Continue Vancomycin IV. Pharmacy to dose. Goal trough ~15. Duration of treatment depends on the clinical picture, but likely a total of 14 days. Can likely switch to PO doxycycline when ready for discharge to complete course of treatment. Monitor renal function and for drug toxicity and dose-adjust antibiotics. Qualifiers: Urinary tract infection type: acute pyelonephritis Qualified Code(s): N10 - Acute pyelonephritis (3) Acute kidney injury Status: Acute Assessment and plan: Likely multifactorial: sepsis + post-obstructive. Improved. Continue to trend. Strict I's and O's. Dose-adjust antibiotics. Avoid nephrotoxins as able. (4) Hydronephrosis Status: Acute Assessment and plan: CT of the abdomen and pelvis 06/20/17 showed interval development of left hydronephrosis and left hydroureter. Urology consulted and following: likely post-obstructive. Aceves catheter placed by the urology team. Qualifiers: Hydronephrosis type: unspecified Qualified Code(s): N13.30 - Unspecified hydronephrosis (5) Prostate cancer Status: Acute Assessment and plan: Diagnosed in January 2016. Mets to the bladder, left shoulder/scapula, left symphysis pubis, and likely the lung. Currently on Lupron and Zometa Q3 months with last dose in April. Zytiga discontinued previously due to diarrhea. PSA up to 33 from 12 in January. [facility] consulted and following. Palliative care consulted and following. Pending decision on whether or not the patient is going to pursue hospice. (6) Bone metastasis Status: Acute Assessment and plan: Known bone mets to the left shoulder/scapula s/p palliative radiation. New mets noted to the left symphysis pubis. Further management per the palliative care and hem/onc teams. (7) Pulmonary nodules Status: Acute Assessment and plan: Likely secondary to metastatic disease. CT chest showed multiple bilateral pulmonary nodules. Further workup and management per the hem/onc team. (8) CAD (coronary artery disease) Status: Chronic Qualifiers: Coronary Disease-Associated Artery/Lesion type: [place] artery [place] vs. transplanted heart: [place] heart Associated angina: without angina Qualified Code(s): I25.10 - Atherosclerotic heart disease of [place] coronary artery without angina pectoris (9) Hypertension Status: Chronic Qualifiers: Hypertension type: essential hypertension Qualified Code(s): I10 - Essential (primary) hypertension Infectious Disease HPI - Data of Consult Patient: new to practice Consult date: 06/22/17 Requesting Physician: Roney Latham CNP Primary Care Provider: Odell Marshall MD - Consult Narrative Reason for consult: MRSA UTI History of present illness: Mr. Link is a 82 year old male with a past medical history of hypertension, CAD with cardiac stents, remote history of rectal cancer status post lower anterior resection with colostomy status post colostomy reversal, and metastatic prostate cancer with metastases to the bone and bladder currently on anti-androgen therapy. The patient was managed in the hospital June 18 for UTI. We are consulted June 22 for further recommendations for urinary tract infection. Stone, the patient's an 82-year-old male with past medical history as stated above. The patient presented to the [facility] for evaluation of perineal pain that had started about 2-3 weeks prior to presentation. He reported increased pain with sitting and bearing down to void and was advised to come to the ER for evaluation. Upon arrival, the patient was afebrile and hemodynamically stable. He was tachypneic and had leukocytosis. He was also noted have an acute kidney injury. Urinalysis was positive for pyuria and the culture came back positive for MRSA. He had a CT the abdomen and pelvis that showed several bilateral pulmonary nodules concerning for metastatic disease as well as bladder wall thickening consistent with radiation changes within the bladder and concerning for a new metastatic lesion to the left pubis symphysis. He was started empirically on IV Rocephin and admitted to the hospital for further evaluation. Since admission, the patient has been evaluated by urology who did not recommend any further surgical intervention. Oncology was consult id. saw the patient and recommended further imaging and initiation of Casodex. The palliative care team was also consult to assist with cone status and his charge planning. The patient had an elevated PSA up to 33 from in January. He also had acute worsening of his serum creatinine. He repeat CT the abdomen and pelvis on June 20 that showed no development of a left hydronephrosis and left hydroureter with right calyectasis with bilateral perinephric stranding without obstructing calculus. There was also noted to be bladder wall thickening concerning for cystitis versus radiation changes as well as postsurgical bowel changes and postsurgical changes in the rectal area with some perirectal stranding and a presacral soft tissue mass and scarring that is unchanged from previous imaging. Under the recommendation of hem/onc, the patient underwent a dedicated CT of the chest showed multiple bilateral pulmonary nodules as well as bone metastases to the left scapula, calcified pleural plaques concerning for asbestos and enlarged mediastinal lymph nodes. Due to the findings on the CT of the abdomen and pelvis, urology placed a Aceves catheter. Since then, the patient's acute kidney injury has resolved. Yesterday, his urine culture came back positive for MRSA. His antibiotics were switched to drink and Zosyn. Today, his white blood cell count is trending down. We have been asked to evaluate and make further recommendations. During my exam today, the patient endorses the history as stated above. He denies any fevers or chills or rigors. He denies any headache or neck pain or dizziness. He denies any congestion, earache, or sore throat. He denies any chest pain, shortness of breath, or cough. He denies any nausea or vomiting or diarrhea. He reported some right lower quadrant abdominal pain that has resolved. He reported severe pain in the perineal area with sitting or bearing down to void or defecate. He also reported some burning with urination. He denied any urinary frequency. He denied any gross hematuria prior to admission. He states his appetite was okay and continues to be good. He denies any back or flank pain. He denies any joint pain. 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 He otherwise denies any pain at this time. He denies any oral thrush or new skin lesions. The patient lives at home alone. He is a retired residential electrician. He is a former smoker quit smoking about 15 years ago. He denies any alcohol or illicit drug use. He denies any recent travel. He is not sexually active. CC: Roney Latham, PEPE Past Med Surg Social Fam HX - Past Medical History Attestation: Yes The following information was validated with the patient. Source: patient, old records reviewed, nursing notes reviewed Medical history: cancer (Prostate CA diagnosed Jan 2016 Zometa/Lupron Q3M; previous rectal cancer s/p LAR), coronary artery disease, hypertension Psychiatric history: no psych history - Past Surgical History Surgical History: angioplasty/stent, other (Right lobectomy, Lower anterior resection with colostomy d/t rectal Cancer, colostomy reversal) - Social History Smoking Status: Former smoker Smokeless Tobacco Status: No Alcohol use: none Drug use: none Occupational status: retired Current living situation: Home - Independent Activity Level: Independent ambulation Recent Out of Country Travel Within the Last 8 Weeks: No Exposure or Possible Exposure to Illness During Travel: No - Family History Mother History Unknown: Yes Infectious Disease-CN:Meds Aspirin Enteric Coated [Aspirin EC] 81 mg PO DAILY 10/01/16 [History] Lisinopril [Zestril] 20 mg PO DAILY 10/01/16 [History] Omeprazole [PriLOSEC] 20 mg PO DAILY 10/01/16 [History] Psyllium Seed (with Dextrose) [Natural Fiber Lax Powder] 368 gm PO TID 10/01/16 [History] Gabapentin [Neurontin] 100 mg PO DAILY #150 capsule 11/06/16 [Rx] 3 Allergy/AdvReac Type Severity Reaction Status Date / Time Iodinated Contrast- Oral and Allergy See Verified 06/18/17 18:51 IV Dye Comments All systems: reviewed and no additional remarkable complaints except as stated Exam - Constitutional Vitals: Temp Pulse Resp BP Pulse Ox 98.9 F 66 18 130/47 95 06/22/17 07:30 06/22/17 07:30 06/22/17 07:30 06/22/17 07:30 06/22/17 07:30 General appearance: average body habitus, cooperative, no acute distress - Head Head exam: Present: atraumatic, normal inspection, normocephalic - Eye Eye exam: Present: EOMI, normal appearance, PERRL Pupils: Present: normal accommodation - ENT ENT exam: Present: mucous membranes moist - Neck Neck exam: Present: normal inspection - Respiratory Respiratory exam: Present: CTAB. Absent: rales, respiratory distress, rhonchi, wheezes - Cardiovascular Cardiovascular exam: Present: RRR, +S1, +S2 - GI/Abdominal GI/Abdominal exam: Present: normal bowel sounds, soft. Absent: distended, tenderness Additional comments: Aceves catheter noted to be draining tea-colored urine. - Extremities Exam Extremities exam: Present: normal inspection. Absent: joint swelling, pedal edema, tenderness - Back Exam Back exam: Present: normal inspection. Absent: CVA tenderness (L), CVA tenderness (R) - Neurological Exam Neurological exam: Present: alert, oriented X3, no focal deficits - Psychiatric Psychiatric exam: Present: normal affect, normal mood - Skin Skin exam: Present: dry, intact, normal color, warm Infectious Disease CN: Results - Labs CBC & Chem 7: 06/22/17 02:47 06/22/17 02:47 Cultures: Cultures 06/20/17 08:49 Blood Culture - Preliminary Peripheral Venipuncture No growth. 06/20/17 08:49 Blood Culture - Preliminary Peripheral Venipuncture No growth. 06/18/17 16:50 Urine Culture - Final Urine,Kidney Methicillin Resistant S.aureus Serology: Serology 06/18/17 Range/Units 16:50 Urine Color Red A (Yellow) Urine Clarity Turbid A (Clear) Urine pH 6.0 (5.0-8.0) pH Units Ur Specific [place] 1.016 (1.010-1.025) Urine Protein 100 H (Neg-Trace) mg/dL Urine Glucose (UA) Normal (Normal) mg/dL Urine Ketones Trace H (Negative) mg/dL Urine Blood Large H (Negative) Urine Nitrite Positive A (Negative) Urine Bilirubin Small H (Negative) Urine Urobilinogen Normal (Normal) mg/dL Ur Leukocyte Esterase Large H (Negative) Urine Microscopic RBC TNTC H (0-3) per hpf Urine Microscopic WBC TNTC H (0-3) per hpf Ur Squamous Epith Cells Many H (None-Few) per lpf Urine Bacteria Moderate H (None-Few) per hpf Ur Culture Indicated? NO. A (NO) Consult Discharge Plan - Plan Referrals: Odell Marshall MD [Primary Care Provider] - - Attending Attestation I examined this patient and my medical decision-making was reviewed with the Resident Physician. I agree with the documented findings, disposition and treatment plan as described except to the extent set forth below. This is an addendum to original report dictated by Toña Sheikh CNP. Please refer to Eric note for full details. Patient is an 82-year-old gentleman with extensive past medical history mentioned below including prostate cancer with metastases everywhere currently on Lupron and Zometa that apparently he seems to be failing who has an increase in PSA from 12-33 came in with increased pain in the perineal area for about 2- 3 weeks prior to admission. Since admission patient has been noted to be having stranding around both kidneys with positive MRSA in the urine. Patient s blood culture were obtained and were negative for MRSA. Patients antibiotics initially with Rocephin switched to Zosyn on the culture final was switched to vancomycin. We were asked to evaluate the patient and make further recommendations. Currently patient laying in bed appears comfortable both son and daughter at bedside. Patient is awake alert oriented pleasant and actually has a sense of humor. Next Assessment and plan: Sepsis Urine tract infection with MRSA Acute kidney injury improved Prostate cancer with metastases failing treatment History of colon cancer Bone metastases Pulmonary nodules Recommendations: Discontinue Zosyn. Continue Vancomycin IV. Pharmacy to dose. Goal trough ~15. Duration of treatment depends on the clinical picture, but likely a total of 14 days. Can likely switch to PO doxycycline when ready for discharge to complete course of treatment. Monitor renal function and for drug toxicity and dose-adjust antibiotics.
--- NOTE | 2017-06-22 12:54 | Urology Progress Note ---
Date of Encounter: 06/22/17 Time of Encounter: 12:53 - Assessment and Plan (1) Prostate carcinoma Current Visit: No Status: Acute Assessment and plan: Appreciate oncology input. (2) Urinary tract infection Current Visit: Yes Status: Acute Assessment and plan: Continue catheter for retention. Continue antibiotics for infection. Qualifiers: Urinary tract infection type: acute pyelonephritis Qualified Code(s): N10 - Acute pyelonephritis Progress Note Narrative: Doing well today. Urine culture is growing out MRSA. Catheter is draining tea to light pink-colored urine. He says he is doing well. Hemoglobin is stable. Renal function is stable. Objective Initial Vital Signs Temp Pulse Resp BP Pulse Ox 98.4 F 79 22 114/88 92 06/18/17 15:43 06/18/17 15:43 06/18/17 15:43 06/18/17 15:43 06/18/17 15:43 - General physical appearance Present: well developed, well nourished, no distress - Respiratory Present: normal respiratory effort - Abdomen Present: soft - Genitourinary Urine Appearance: Present: Clear - Labs 06/22/17 02:47 06/22/17 02:47 Diabetes panel 06/22/17 Range/Units 02:47 Sodium 136 (136-145) mEq/L Potassium 4.5 (3.5-5.1) mEq/L Chloride 113 H (98-107) mEq/L Carbon Dioxide 21 L (23-29) mEq/L BUN 19 (8-23) mg/dL Creatinine 1.17 (0.70-1.30) mg/dL Glucose 100 (70-105) mg/dL Calcium 7.5 L (8.6-10.3) mg/dL Calcium panel 06/22/17 Range/Units 02:47 Calcium 7.5 L (8.6-10.3) mg/dL Pituitary panel 06/22/17 Range/Units 02:47 Sodium 136 (136-145) mEq/L Potassium 4.5 (3.5-5.1) mEq/L Chloride 113 H (98-107) mEq/L Carbon Dioxide 21 L (23-29) mEq/L BUN 19 (8-23) mg/dL Creatinine 1.17 (0.70-1.30) mg/dL Glucose 100 (70-105) mg/dL Calcium 7.5 L (8.6-10.3) mg/dL Adrenal panel 06/22/17 Range/Units 02:47 Sodium 136 (136-145) mEq/L Potassium 4.5 (3.5-5.1) mEq/L Chloride 113 H (98-107) mEq/L Carbon Dioxide 21 L (23-29) mEq/L BUN 19 (8-23) mg/dL Creatinine 1.17 (0.70-1.30) mg/dL Glucose 100 (70-105) mg/dL Calcium 7.5 L (8.6-10.3) mg/dL Consult Discharge Plan - Plan Referrals: Odell Marshall MD [Primary Care Provider] -
[2017-06-22] MEDS: *HR* HYDROcodone/Acet 5/325 mg TABLET PO PRN (21:07)
[2017-06-23] MEDS: *HR* OxyCODONE/APAP 5/325 TABLET PO PRN ×2 (00:13→15:39)
[2017-06-23] MEDS: *HR* Heparin 5,000 UNIT/ML VIAL SQ SCH ×2 (05:12→17:26)
[2017-06-23] MEDS: *HR* HYDROcodone/Acet 5/325 mg TABLET PO PRN ×3 (05:12→23:29)
[2017-06-23 05:41] LABS: Basophils # 0.1 K/mcL (0.0-0.2); Basophils % 0.7 %; Eosinophils # 0.5 K/mcL (0.0-0.6); Hematocrit 26.2 % (37.5-50.1); Hemoglobin 8.1 g/dL (12.9-16.9); Immature Granulocytes % 0.8 % (0-4); Lymphocytes # 1.8 K/mcL (0.6-4.6); Lymphocytes % 18.1 %; Mean Corpuscular HGB Conc 30.9 g/dL (31.6-35.5); Mean Corpuscular Hemoglobin 30.8 pg (28.0-33.3); Mean Corpuscular Volume 99.6 fL (83.0-100.0); Mean Platelet Volume 9.7 fL (9.4-12.4); Monocytes # 0.7 K/mcL (0.0-1.3); Monocytes % 6.5 %; Platelet Count 205 K/mcL (140-400); Red Blood Count 2.63 M/mcL (4.19-5.50); Red Cell Distribution Width 13.1 % (11.5-14.5); Segmented Neutrophils % 68.9 %
[2017-06-23 05:58] LABS: BUN/Creatinine Ratio 14 (6-26); Blood Urea Nitrogen 14 mg/dL (8-23); Calcium 7.8 mg/dL (8.6-10.3); Carbon Dioxide 20 mEq/L (23-29); Chloride 113 mEq/L (98-107); Glucose 93 mg/dL (70-105); Osmolality,Calculated 286 (280-300); Potassium 4.1 mEq/L (3.5-5.1); Sodium 138 mEq/L (136-145); eGFR For African Americans > 60 (> 60); eGFR For Non-African Americans > 60 (> 60)
[2017-06-23] MEDS: Aspirin Enteric Coated 81 MG Tablet PO SCH (07:56)
[2017-06-23] MEDS: Lisinopril 20 MG TABLET PO SCH (07:56)
[2017-06-23] MEDS: Gabapentin 100 MG CAPSULE PO SCH (07:56)
[2017-06-23] MEDS: Bicalutamide 50 MG TABLET PO SCH (08:20)
--- NOTE | 2017-06-23 09:37 | Infectious Disease Progress No ---
Date of Encounter: 06/23/17 Time of Encounter: 09:34 - Assessment and Plan (1) Sepsis Current Visit: Yes Status: Acute Severe sepsis: The patient had two SIRS criteria plus MELANY on admission. Likely secondary to UTI. Improved. WBC normal this morning. Tachypnea has resolved. He did have a low- grade fever overnight with Tmax 100.4, but patient asymptomatic. Blood cultures drawn 06/18/17 are negative x 2 sets. Qualifiers: Sepsis type: methicillin resistant Staphylococcus aureus Qualified Code(s) : A41.02 - Sepsis due to Methicillin resistant Staphylococcus aureus (2) Urinary tract infection Current Visit: Yes Status: Acute Causative organism: MRSA. Etiology unclear. No recent instrumentation of the bladder or history of using incontinence products. Blood cultures are negative x 2 sets so unlikely seeding from bacteremia. CT of the abdomen and pelvis completed 06/18/17 showed several bilateral pulmonary nodules concerning for metastatic disease and bladder wall thickening , likely secondary to previous radiation, and likely metastatic disease to the left pubis. Repeat CT of the abdomen 06/20/17 showed interval development of left hydronephrosis and left hydroureter without obstructing calculus. It also showed right caliectasis with bilateral perinephric stranding and re- demonstration of bladder wall thickening consistent with radiation changes vs. cystitis. Post-surgical changes noted in the upper abdomen without mass. There was noted to be post-surgical changes in the rectal area with perirectal stranding and presacral soft tissue mass and scarring, unchanged since previous imaging. Urology consulted. No surgical intervention required, but aceves has been placed. Clinically, the patient has improved. Continue Vancomycin IV. Pharmacy to dose. Goal trough ~15. Duration of treatment depends on the clinical picture, but likely a total of 14 days. Can likely switch to PO doxycycline when ready for discharge to complete course of treatment. Monitor renal function and for drug toxicity and dose-adjust antibiotics. Qualifiers: Urinary tract infection type: acute pyelonephritis Qualified Code(s): N10 - Acute pyelonephritis (3) Acute kidney injury Current Visit: Yes Status: Acute Likely multifactorial: sepsis + post-obstructive. Improved. Continue to trend. Strict I's and O's. Dose-adjust antibiotics. Avoid nephrotoxins as able. (4) Hydronephrosis Current Visit: Yes Status: Acute CT of the abdomen and pelvis 5/12/18 showed interval development of left hydronephrosis and left hydroureter. Urology consulted and following: likely post-obstructive. Aceves catheter placed by the urology team. Qualifiers: Hydronephrosis type: unspecified Qualified Code(s): N13.30 - Unspecified hydronephrosis (5) Prostate cancer Current Visit: Yes Status: Acute Diagnosed in January 2016. Mets to the bladder, left shoulder/scapula, left symphysis pubis, and likely the lung. Currently on Lupron and Zometa Q3 months with last dose in April. Zytiga discontinued previously due to diarrhea. PSA up to 33 from 12 in January. [facility] consulted and following. Palliative care consulted and following. Pending transition to hospice. (6) Bone metastasis Current Visit: Yes Status: Acute Known bone mets to the left shoulder/scapula s/p palliative radiation. New mets noted to the left symphysis pubis. Further management per the palliative care and hem/onc teams. (7) Pulmonary nodules Current Visit: Yes Status: Acute Likely secondary to metastatic disease. CT chest showed multiple bilateral pulmonary nodules. Further workup and management per the hem/onc team. (8) CAD (coronary artery disease) Current Visit: Yes Status: Chronic Qualifiers: Coronary Disease-Associated Artery/Lesion type: [place] artery [place] vs. transplanted heart: [place] heart Associated angina: without angina Qualified Code(s): I25.10 - Atherosclerotic heart disease of [place] coronary artery without angina pectoris (9) Hypertension Current Visit: Yes Status: Chronic Qualifiers: Hypertension type: essential hypertension Qualified Code(s): I10 - Essential (primary) hypertension - Subjective Interval history: Patient seen and examined. No acute events noted overnight. Patient sitting up in bed. States overall he feels much better. He does complain of left shoulder pain that severely limits his range of motion. He denies any fevers or chills or rigors. He denies any chest pain, shortness of breath, or cough. He denies any nausea, vomiting, diarrhea, or constipation. He states he had a bowel movement yesterday, but has not gone today. He has a Aceves catheter that remains patent with dark brown blood-tinged urine. He denies any oral thrush or new skin lesions. Infect Dis PN-Objective Data - Labs CBC & Chem 7: 06/23/17 04:53 06/23/17 04:53 Labs: Laboratory Results - last 24 hr 06/23/17 06/23/17 04:53 04:53 WBC 10.1 RBC 2.63 L Hgb 8.1 L Hct 26.2 L MCV 99.6 MCH 30.8 MCHC 30.9 L RDW 13.1 Plt Count 205 MPV 9.7 Immature Gran % 0.8 Seg Neutrophils % 68.9 Lymphocytes % 18.1 Monocytes % 6.5 Eosinophils % 5.0 Basophils % 0.7 Neutrophils # 7.0 Lymphocytes # 1.8 Monocytes # 0.7 Eosinophils # 0.5 Basophils # 0.1 Sodium 138 Potassium 4.1 Chloride 113 H Carbon Dioxide 20 L BUN 14 Creatinine 1.00 Est GFR ( Amer) > 60 Est GFR (Non-Af Amer) > 60 BUN/Creatinine Ratio 14 Glucose 93 Calculated Osmolality 286 Calcium 7.8 L Exam - Constitutional Vitals: Temp Pulse Resp BP Pulse Ox 98.0 F 67 20 173/65 97 06/23/17 07:40 06/23/17 07:40 06/23/17 07:40 06/23/17 07:40 06/23/17 07:40 General appearance: average body habitus, cooperative, no acute distress - Head Head exam: Present: atraumatic, normal inspection, normocephalic - Eye Eye exam: Present: EOMI, normal appearance, PERRL Pupils: Present: normal accommodation - ENT ENT exam: Present: mucous membranes moist - Neck Neck exam: Present: normal inspection - Respiratory Respiratory exam: Present: CTAB, wheezes (Faint, right upper, right lower, and left upper lobes). Absent: rales, respiratory distress, rhonchi - Cardiovascular Cardiovascular exam: Present: RRR, +S1, +S2 - GI/Abdominal GI/Abdominal exam: Present: normal bowel sounds, soft. Absent: distended, tenderness Additional comments: Aceves catheter noted to be draining dark yellow blood tinged urine. - Extremities Exam Extremities exam: Present: normal inspection. Absent: joint swelling, pedal edema, tenderness - Neurological Exam Neurological exam: Present: alert, oriented X3, no focal deficits - Psychiatric Psychiatric exam: Present: normal affect, normal mood - Skin Skin exam: Present: dry, intact, normal color, warm - VTE Documentation of Mechanical Device: Intermittent pneumatic compression device Consult Discharge Plan - Plan Referrals: Rolando,Odell E, MD [Primary Care Provider] - - Attending Attestation I examined this patient and my medical decision-making was reviewed with the Resident Physician. I agree with the documented findings, disposition and treatment plan as described except to the extent set forth below.
--- NOTE | 2017-06-23 09:56 | Internal Med Progress Note ---
Date of Encounter: 06/23/17 Time of Encounter: 09:45 - Assessment and plan (1) Sepsis Current Visit: Yes Status: Acute Assessment and plan: Sepsis 2/2 to pyelonephritis and staph aureus UTI. On vanc and zosyn. Blood cultures negative. CT scan shows hydronephrosis and perinephric stranding. Urology following. WBC trending down. Aceves catheter in place. Appreciate ID recs. Plan for discharge on doxycycline to complete a 14 day course Qualifiers: Sepsis type: methicillin resistant Staphylococcus aureus Qualified Code(s) : A41.02 - Sepsis due to Methicillin resistant Staphylococcus aureus (2) Acute kidney injury Current Visit: Yes Status: Acute Assessment and plan: ANN vs Ann on CKD. Monitor creatinine. IV fluids. Obtain CT abdomen showed new left hyronephrosis. Urology following. creatinine trending down (3) Hydronephrosis Current Visit: Yes Status: Acute Assessment and plan: Patient has aceves in place. Urology following. Plan to discharge on aceves and schedule outpatient follow up with urology. No indication for stent placement at this time Qualifiers: Hydronephrosis type: unspecified Qualified Code(s): N13.30 - Unspecified hydronephrosis (4) Urinary tract infection Current Visit: Yes Status: Acute Assessment and plan: Switched rocephin to zosyn 2/2 to worsening leukocytosis. Urine cultures showed staph aureus. Vancomycin added. F/U blood cultures.New CT scan showed bilateral perinephric stranding and hydronephrosis. Urology following Qualifiers: Urinary tract infection type: acute pyelonephritis Qualified Code(s): N10 - Acute pyelonephritis (5) Prostate cancer Current Visit: Yes Status: Acute Assessment and plan: Patient has remote metastasis to bone and possible to lung as well. CT abdomen shows new pulmonary nodules. Bone scan shows new areas of uptake in left scapula. Palliative care following and patient is now DNR (6) CAD (coronary artery disease) Current Visit: Yes Status: Chronic Assessment and plan: continue home meds Qualifiers: Coronary Disease-Associated Artery/Lesion type: [place] artery [place] vs. transplanted heart: [place] heart Associated angina: without angina Qualified Code(s): I25.10 - Atherosclerotic heart disease of [place] coronary artery without angina pectoris (7) Hypertension Current Visit: Yes Status: Chronic Assessment and plan: Continue home medications. Closely monitor BP Qualifiers: Hypertension type: essential hypertension Qualified Code(s): I10 - Essential (primary) hypertension (8) DVT prophylaxis Current Visit: Yes Status: Acute Assessment and plan: Heparin subcutaneously - Time Spent With Patient Total time spent is greater than 50% in coordination of care (as documented) at patient's floor/unit and/or counseling patient: - Subjective Interval history: No acute events overnight. - Constitutional Vitals: Temp Pulse Resp BP Pulse Ox 98.0 F 67 20 173/65 97 06/23/17 07:40 06/23/17 07:40 06/23/17 07:40 06/23/17 07:40 06/23/17 07:40 General appearance: Present: A&O X 3, no acute distress, answers questions appropriately - Head Head exam: Present: atraumatic, normocephalic - Eye Eye exam: Present: PERRL, conjuntiva pink, sclera anicteric Pupils: Present: PERRL - Neck Neck exam general surgery: Present: supple, trachea midline. Absent: lymphadenopathy - Respiratory Respiratory exam: Present: CTAB. Absent: accessory muscle use, rales, rhonchi, wheezes - Cardiovascular Cardiovascular exam: Present: RRR, +S1, +S2. Absent: diastolic murmur, gallop, rubs, systolic murmur - GI/Abdominal GI/Abdominal exam: Present: normal bowel sounds, soft, no peritoneal signs. Absent: distended, tenderness - Extremities Exam Extremities exam: Present: warm, radial pulses palpable and symmetrical. Absent : calf tenderness, cyanotic, pedal edema - Neurological Exam Neurological exam: Present: CN II-XII intact, oriented X3, no focal deficits. Absent: pronater drift, facial droop, speech deficit - Skin Skin exam: Present: dry, intact Internal Medicine: Result - Labs CBC & Chem 7: 06/23/17 04:53 06/23/17 04:53 Labs: Short CBC 06/23/17 Range/Units 04:53 WBC 10.1 (4.3-11.1) K/mcL Hgb 8.1 L (12.9-16.9) g/dL Hct 26.2 L (37.5-50.1) % Plt Count 205 (140-400) K/mcL Neutrophils # 7.0 (1.6-8.9) K/mcL [facility] 06/23/17 04:53 Sodium 138 Potassium 4.1 Chloride 113 H Carbon Dioxide 20 L BUN 14 Creatinine 1.00 Glucose 93 Calcium 7.8 L - VTE Documentation of Mechanical Device: Intermittent pneumatic compression device Consult Discharge Plan - Plan Referrals: Odell Marshall MD [Primary Care Provider] -
[2017-06-23] MEDS: *HR* LORazepam 0.5 MG TABLET PO PRN ×2 (10:16→20:10)
--- NOTE | 2017-06-23 10:43 | Palliative Progress Note ---
Date of Encounter: 06/23/17 Time of Encounter: 09:30 - Assessment and plan (1) Weakness generalized Current Visit: Yes Status: Acute Assessment and plan: Patient having improved strength. Continue to work with PT/OT as tolerated. (2) Goals of care, counseling/discussion Current Visit: Yes Status: Acute Assessment and plan: No family present at bedside. Patient reports plan to return home. According to report from Palliative care team, patient is planning to discharge home with [facility] at time of discharge. Palliative care will continue to follow patient at this time. 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 Patient inquired whether Oncology could perform a procedure to "surgically take out the cancer." Expressed concern weather interested in hospice; patient affirms he is. (4) Urinary tract infection Current Visit: Yes Status: Acute Assessment and plan: WBC decreased to 10.1. Patient is receiving IV antibiotics, per patient is able to transition to PO antibiotics at discharge. Qualifiers: Urinary tract infection type: acute pyelonephritis Qualified Code(s): N10 - Acute pyelonephritis (5) Anxiety Current Visit: Yes Status: Acute Assessment and plan: Patient reports increasing anxiety. No Ativan administered in the last 24 hours. Notified Katie MIRANDA that patient is requesting Ativan at this time. (6) Cancer associated pain Current Visit: Yes Status: Acute Assessment and plan: Patient reports current pain level 10/10 at this time. Patient has received Kenner X 2 in the last 24 hours and Percocet X2 in the last 24 hours. Notified Katie RN that patient is requesting pain medication at this time. - Time Spent With Patient Total time spent is greater than 50% in coordination of care (as documented) at patient's floor/unit and/or counseling patient: - Subjective Interval history: Patient standing up to get back in bed form bedside commode independently upon arrival for assessment. Patient is alert and oriented times three. Patient has received two doses of Kenner and two doses of Percocet in the last 24 hours. Patient reports current pain is a 10/10, as he just was ambulating; pain is identified in groin area, worsened by movement, and reports pain medicine and not moving does help. Patient complains of increased anxiety, regarding discharge planning. Patient has taken 0 doses of Ativan in the last 24 hours. Patient talked pleasantly about [place] [facility] and family care. Patient asked if there was any surgical intervention that could be performed to remove all the scrotal "bumps and knots in the scrotum and taint" to take pain away. Expressed concern that this may be pain he is living with for the remainder of his days; re-educated on the availability of pain medications and need to ask for them. Patient verbalized understanding. No family is present at bedside; patient reports that his daughter is in [place] and two sons are in [place] and [place]. Patient denies nausea/ vomiting or dyspnea. Patient reports he is feeling much better now. - Constitutional Vitals: Abnormal lab results RBC 2.63 M/mcL (4.19-5.50) L 06/23/17 04:53 Hgb 8.1 g/dL (12.9-16.9) L 06/23/17 04:53 Hct 26.2 % (37.5-50.1) L 06/23/17 04:53 MCHC 30.9 g/dL (31.6-35.5) L 06/23/17 04:53 Chloride 113 mEq/L (98-107) H 06/23/17 04:53 Carbon Dioxide 20 mEq/L (23-29) L 06/23/17 04:53 Calcium 7.8 mg/dL (8.6-10.3) L 06/23/17 04:53 Prostate Specific Ag 33.84 ng/mL (Less than 4.00) H 06/19/17 18:15 Urine Color Red (Yellow) A 06/18/17 16:50 Urine Clarity Turbid (Clear) A 06/18/17 16:50 Urine Protein 100 mg/dL (Neg-Trace) H 06/18/17 16:50 Urine Ketones Trace mg/dL (Negative) H 06/18/17 16:50 Urine Blood Large (Negative) H 06/18/17 16:50 Urine Nitrite Positive (Negative) A 06/18/17 16:50 Urine Bilirubin Small (Negative) H 06/18/17 16:50 Ur Leukocyte Esterase Large (Negative) H 06/18/17 16:50 Urine Microscopic RBC TNTC per hpf (0-3) H 06/18/17 16:50 Urine Microscopic WBC TNTC per hpf (0-3) H 06/18/17 16:50 Ur Squamous Epith Cells Many per lpf (None-Few) H 06/18/17 16:50 Urine Bacteria Moderate per hpf (None-Few) H 06/18/17 16:50 Ur Culture Indicated? NO. (NO) A 06/18/17 16:50 General appearance: Present: cooperative, no acute distress (Does report increased anxiety.) - Head Head exam: Present: atraumatic, normal inspection - Eye Eye exam: Present: EOMI, normal appearance, PERRL Pupils: Present: normal accommodation, PERRL - ENT ENT exam: Present: mucous membranes moist, normal external ear exam - Neck Neck exam: Present: full ROM, normal inspection - Respiratory Respiratory exam: Present: wheezes. Absent: accessory muscle use, respiratory distress - Cardiovascular Cardiovascular exam: Present: +S1, +S2 - GI/Abdominal GI/Abdominal exam: Present: normal bowel sounds, soft. Absent: tenderness - Rectal Rectal exam: Present: deferred - Extremities Exam Extremities exam: Present: full ROM, normal capillary refill, normal inspection. Absent: calf tenderness, pedal edema - Back Exam Back exam: Present: full ROM - Neurological Exam Neurological exam: Present: alert, oriented X3, strengths equal and symetr throughout. Absent: altered Palliative Quality Palliative Quality: Screen for Code Status: Yes, Screen for Goals of Care: Yes, Screen for Pain: Yes, If Pain Regimen Started, Initiate Bowel Regimen: NA, Screen for Nausea/Vomitting: Yes - Labs CBC & Chem 7: 06/23/17 04:53 06/23/17 04:53 Labs: Laboratory Results - last 24 hr 06/23/17 06/23/17 04:53 04:53 WBC 10.1 RBC 2.63 L Hgb 8.1 L Hct 26.2 L MCV 99.6 MCH 30.8 MCHC 30.9 L RDW 13.1 Plt Count 205 MPV 9.7 Immature Gran % 0.8 Seg Neutrophils % 68.9 Lymphocytes % 18.1 Monocytes % 6.5 Eosinophils % 5.0 Basophils % 0.7 Neutrophils # 7.0 Lymphocytes # 1.8 Monocytes # 0.7 Eosinophils # 0.5 Basophils # 0.1 Sodium 138 Potassium 4.1 Chloride 113 H Carbon Dioxide 20 L BUN 14 Creatinine 1.00 Est GFR ( Amer) > 60 Est GFR (Non-Af Amer) > 60 BUN/Creatinine Ratio 14 Glucose 93 Calculated Osmolality 286 Calcium 7.8 L Consult Discharge Plan - Plan Referrals: Odell Marshall MD [Primary Care Provider] -
[2017-06-23] MEDS: 0.9 % Sodium Chloride 1,000 ML IVC SCH ×2 (15:32→15:39)
--- NOTE | 2017-06-23 17:45 | Oncology Inp Progress Note ---
Date of Encounter: 06/23/17 Time of Encounter: 17:45 (1) Urinary tract infection Current Visit: Yes Status: Acute Assessment and plan: Clinically improving from pyelonephritis and MRSA UTI. Blood cultures negative. To be discharged on doxycycline. Qualifiers: Urinary tract infection type: acute pyelonephritis Qualified Code(s): N10 - Acute pyelonephritis (2) Prostate cancer Current Visit: Yes Status: Acute Assessment and plan: Bony disease affecting pubis and left scapula. Small, nonspecific pulmonary nodules concerning for metastases. PSA stable. Discussed goals of care with Odell today. He is content with decision for hospice and does not desire any further aggressive systemic therapy. Left shoulder pain still a major concern, and he is worried about playing his guitar. This has een previously irradiated. Recommended conservative management for now. If pain remains problematic, could consider XRT in the future. Have briefly discussed with XRT and may be able to give more therapy; would have to obtain records from prior treatment. No need for acute intervention. His DNR CCA. Please call me with concerns or questions at [phone]. Oncology: Subj Interval history: Still having left shoulder pain with flexion and abduction. Otherwise feeling better overall. Pubic pain is controlled. No fever or chills. No new aches or pains. Fatigued. Frustrated with proposition of the inability to play guitar. Palliative care and the family have been discussing hospice at discharge which he agrees with. Still wonders about radiation to the left shoulder. - Constitutional Vitals: Vital Signs Temp Pulse Resp BP Pulse Ox 06/23/17 16:09 99.4 F 87 17 155/73 98 06/23/17 11:32 99.4 F 74 18 141/63 97 06/23/17 07:40 98.0 F 67 20 173/65 97 06/23/17 07:02 157/61 06/23/17 04:09 98.2 F 52 18 154/64 97 06/22/17 23:35 98.2 F 44 17 151/56 94 06/22/17 20:53 98.6 F 54 17 158/62 93 Intake and Output 06/23/17 06/23/17 06/24/17 08:59 16:59 00:59 Intake Total 1050 / 1050 Output Total 600 / 600 450 / 450 Balance 450 / 450 -450 / -450 Intake: IV Fluids 1000 / 1000 0.9 % Sodium Chloride 1,000 ML 1000 / 1000 @ 100 mls/hr IVC .Q10H MARYCRUZ Rx#: [id number] Oral 50 / 50 Output: Catheter 600 / 600 450 / 450 Other: Meal Dinner Percent of Meal Consumed 75% Stool Size Large Stool Consistency formed Stool Characteristics Normal for Patient Stool Color Brown # Bowel Movements 1 Weight 78.3 kg Patient Weight 06/24/17 00:59 Weight 78.3 kg General appearance: cooperative, no acute distress - Head Head exam: Present: atraumatic, normal inspection, normocephalic - Eye Eye exam: Present: normal appearance, conjuntiva pink - ENT ENT exam: Present: mucous membranes moist, normal oropharynx - Neck Neck exam: Present: full ROM, normal inspection - Respiratory Respiratory exam: Present: CTAB - Cardiovascular Cardiovascular exam: Present: RRR - GI/Abdominal GI/Abdominal exam: Present: normal bowel sounds, soft - Extremities Exam Extremities exam: Present: normal inspection - Back Exam Back exam: Present: normal inspection - Neurological Exam Neurological exam: Present: alert, CN II-XII intact, oriented X3 Oncology: Obj Data - Labs CBC & Chem 7: 06/23/17 04:53 06/23/17 04:53 Labs: Laboratory Results - last 24 hr 06/23/17 06/23/17 04:53 04:53 WBC 10.1 RBC 2.63 L Hgb 8.1 L Hct 26.2 L MCV 99.6 MCH 30.8 MCHC 30.9 L RDW 13.1 Plt Count 205 MPV 9.7 Immature Gran % 0.8 Seg Neutrophils % 68.9 Lymphocytes % 18.1 Monocytes % 6.5 Eosinophils % 5.0 Basophils % 0.7 Neutrophils # 7.0 Lymphocytes # 1.8 Monocytes # 0.7 Eosinophils # 0.5 Basophils # 0.1 Sodium 138 Potassium 4.1 Chloride 113 H Carbon Dioxide 20 L BUN 14 Creatinine 1.00 Est GFR ( Amer) > 60 Est GFR (Non-Af Amer) > 60 BUN/Creatinine Ratio 14 Glucose 93 Calculated Osmolality 286 Calcium 7.8 L Consult Discharge Plan - Plan Referrals: Odell Marshall MD [Primary Care Provider] -
[2017-06-24] MEDS: 0.9 % Sodium Chloride 1,000 ML IVC SCH (02:24)
[2017-06-24 05:26] LABS: Basophils # 0.1 K/mcL (0.0-0.2); Basophils % 0.8 %; Eosinophils # 0.4 K/mcL (0.0-0.6); Eosinophils % 5.2 %; Hematocrit 23.5 % (37.5-50.1); Hemoglobin 7.7 g/dL (12.9-16.9); Immature Granulocytes % 1.4 % (0-4); Lymphocytes # 1.4 K/mcL (0.6-4.6); Lymphocytes % 17.9 %; Mean Corpuscular HGB Conc 32.8 g/dL (31.6-35.5); Mean Corpuscular Hemoglobin 32.2 pg (28.0-33.3); Mean Corpuscular Volume 98.3 fL (83.0-100.0); Mean Platelet Volume 9.3 fL (9.4-12.4); Monocytes # 0.6 K/mcL (0.0-1.3); Monocytes % 7.7 %; Neutrophils # 5.3 K/mcL (1.6-8.9); Platelet Count 195 K/mcL (140-400); Red Blood Count 2.39 M/mcL (4.19-5.50); Red Cell Distribution Width 12.9 % (11.5-14.5)
[2017-06-24 05:46] LABS: BUN/Creatinine Ratio 15 (6-26); Blood Urea Nitrogen 12 mg/dL (8-23); Calcium 7.8 mg/dL (8.6-10.3); Carbon Dioxide 20 mEq/L (23-29); Chloride 117 mEq/L (98-107); Glucose 88 mg/dL (70-105); Osmolality,Calculated 295 (280-300); Potassium 4.5 mEq/L (3.5-5.1); Sodium 143 mEq/L (136-145); eGFR For African Americans > 60 (> 60); eGFR For Non-African Americans > 60 (> 60)
[2017-06-24] MEDS: *HR* Heparin 5,000 UNIT/ML VIAL SQ SCH (06:03)
[2017-06-24] MEDS: *HR* OxyCODONE/APAP 5/325 TABLET PO PRN (06:04)
[2017-06-24] MEDS: Bicalutamide 50 MG TABLET PO SCH (08:31)
[2017-06-24] MEDS: Gabapentin 100 MG CAPSULE PO SCH (08:32)
[2017-06-24] MEDS: Aspirin Enteric Coated 81 MG Tablet PO SCH (08:32)
[2017-06-24] MEDS: Lisinopril 20 MG TABLET PO SCH (08:32)
[2017-06-24] MEDS: *HR* LORazepam 0.5 MG TABLET PO PRN (09:31)
[2017-06-24] MEDS: *HR* HYDROcodone/Acet 5/325 mg TABLET PO PRN (09:31)
--- NOTE | 2017-06-24 09:32 | Internal Med Progress Note ---
Date of Encounter: 06/24/17 Time of Encounter: 09:30 - Assessment and plan (1) Sepsis Status: Acute Assessment and plan: Sepsis 2/2 to pyelonephritis and staph aureus UTI. On vanc and zosyn. Blood cultures negative. CT scan shows hydronephrosis and perinephric stranding. Urology following. WBC trending down. Aceves catheter in place. Appreciate ID recs. Plan for discharge on doxycycline to complete a 14 day course. awaiting home hospice set up Qualifiers: Sepsis type: methicillin resistant Staphylococcus aureus Qualified Code(s) : A41.02 - Sepsis due to Methicillin resistant Staphylococcus aureus (2) Acute kidney injury Status: Acute Assessment and plan: ANN vs Ann on CKD. Monitor creatinine. IV fluids. Obtain CT abdomen showed new left hyronephrosis. Urology following. creatinine trending down (3) Hydronephrosis Status: Acute Assessment and plan: Patient has aceves in place. Urology following. Plan to discharge on aceves and schedule outpatient follow up with urology. No indication for stent placement at this time Qualifiers: Hydronephrosis type: unspecified Qualified Code(s): N13.30 - Unspecified hydronephrosis (4) Urinary tract infection Status: Acute Assessment and plan: Switched rocephin to zosyn 2/2 to worsening leukocytosis. Urine cultures showed staph aureus. Vancomycin added. F/U blood cultures.New CT scan showed bilateral perinephric stranding and hydronephrosis. Urology following Qualifiers: Urinary tract infection type: acute pyelonephritis Qualified Code(s): N10 - Acute pyelonephritis (5) Prostate cancer Status: Acute Assessment and plan: Patient has remote metastasis to bone and possible to lung as well. CT abdomen shows new pulmonary nodules. Bone scan shows new areas of uptake in left scapula. Palliative care following and patient is now DNR (6) CAD (coronary artery disease) Status: Chronic Assessment and plan: continue home meds Qualifiers: Coronary Disease-Associated Artery/Lesion type: [place] artery [place] vs. transplanted heart: [place] heart Associated angina: without angina Qualified Code(s): I25.10 - Atherosclerotic heart disease of [place] coronary artery without angina pectoris (7) Hypertension Status: Chronic Assessment and plan: Continue home medications. Closely monitor BP Qualifiers: Hypertension type: essential hypertension Qualified Code(s): I10 - Essential (primary) hypertension (8) DVT prophylaxis Status: Acute Assessment and plan: Heparin subcutaneously - Time Spent With Patient Total time spent is greater than 50% in coordination of care (as documented) at patient's floor/unit and/or counseling patient: - Subjective Interval history: No acute events overnight. - Constitutional Vitals: Temp Pulse Resp BP Pulse Ox 97.8 F 98 17 144/50 93 06/24/17 06:42 06/24/17 06:42 06/24/17 06:42 06/24/17 06:42 06/24/17 06:42 General appearance: Present: A&O X 3, no acute distress, answers questions appropriately - Head Head exam: Present: atraumatic, normocephalic - Eye Eye exam: Present: PERRL, conjuntiva pink, sclera anicteric Pupils: Present: PERRL - Neck Neck exam general surgery: Present: supple, trachea midline. Absent: lymphadenopathy - Respiratory Respiratory exam: Present: CTAB. Absent: accessory muscle use, rales, rhonchi, wheezes - Cardiovascular Cardiovascular exam: Present: RRR, +S1, +S2. Absent: diastolic murmur, gallop, rubs, systolic murmur - GI/Abdominal GI/Abdominal exam: Present: normal bowel sounds, soft, no peritoneal signs. Absent: distended, tenderness - Additional comments: aceves in place - Extremities Exam Extremities exam: Present: warm, radial pulses palpable and symmetrical. Absent : calf tenderness, cyanotic, pedal edema - Neurological Exam Neurological exam: Present: CN II-XII intact, oriented X3, no focal deficits. Absent: pronater drift, facial droop, speech deficit - Skin Skin exam: Present: dry, intact Internal Medicine: Result - Labs CBC & Chem 7: 06/24/17 05:04 06/24/17 05:04 Labs: Short CBC 06/24/17 Range/Units 05:04 WBC 8.0 (4.3-11.1) K/mcL Hgb 7.7 L (12.9-16.9) g/dL Hct 23.5 L (37.5-50.1) % Plt Count 195 (140-400) K/mcL Neutrophils # 5.3 (1.6-8.9) K/mcL BMP 06/24/17 05:04 Sodium 143 Potassium 4.5 Chloride 117 H Carbon Dioxide 20 L BUN 12 Creatinine 0.81 Glucose 88 Calcium 7.8 L - VTE Documentation of Mechanical Device: Intermittent pneumatic compression device Consult Discharge Plan - Plan Instructions: Doxycycline (By mouth), Oxycodone/Acetaminophen (By mouth), Lorazepam (By mouth), Bicalutamide (By mouth), Urinary Tract Infection in Men ( [place]) Referrals: Odell Marshall MD [Primary Care Provider] - 06/29/17 2:45 pm (Please follow up as schedule...) Prescriptions: LORazepam [Ativan] 0.5 mg PO Q4HR PRN 7 Days #30 tablet PRN Reason: Anxiety Bicalutamide [Casodex] 50 mg PO DAILY #30 tablet Doxycycline Hyclate 100 mg PO BID 8 Days #16 capsule Oxycodone HCl/Acetaminophen [Percocet 5-325 mg Tablet] 1 each PO Q4H PRN 7 Days #42 tablet PRN Reason: Pain
--- NOTE | 2017-06-24 10:03 | Infectious Disease Progress No ---
Date of Encounter: 06/24/17 Time of Encounter: 09:00 - Assessment and Plan (1) Sepsis Status: Acute Severe sepsis: The patient had two SIRS criteria plus MELANY on admission. Likely secondary to UTI. Improved. WBC normal. Tachypnea has resolved. Afebrile overnight. Blood cultures drawn 06/18/17 are negative x 2 sets. Qualifiers: Sepsis type: methicillin resistant Staphylococcus aureus Qualified Code(s) : A41.02 - Sepsis due to Methicillin resistant Staphylococcus aureus (2) Urinary tract infection Status: Acute Causative organism: MRSA. Etiology unclear. No recent instrumentation of the bladder or history of using incontinence products. Blood cultures are negative x 2 sets so unlikely seeding from bacteremia. CT of the abdomen and pelvis completed 06/18/17 showed several bilateral pulmonary nodules concerning for metastatic disease and bladder wall thickening , likely secondary to previous radiation, and likely metastatic disease to the left pubis. Repeat CT of the abdomen 06/20/17 showed interval development of left hydronephrosis and left hydroureter without obstructing calculus. It also showed right caliectasis with bilateral perinephric stranding and re- demonstration of bladder wall thickening consistent with radiation changes vs. cystitis. Post-surgical changes noted in the upper abdomen without mass. There was noted to be post-surgical changes in the rectal area with perirectal stranding and presacral soft tissue mass and scarring, unchanged since previous imaging. Urology consulted. No surgical intervention required, but aceves has been placed. He continues to have hematuria. Consider re-evaluation by Urology. Clinically, the patient has improved. Continue Vancomycin IV. Pharmacy to dose. Goal trough ~15. Duration of treatment depends on the clinical picture, but likely a total of 14 days. Can likely switch to PO doxycycline when ready for discharge to complete course of treatment. Monitor renal function and for drug toxicity and dose-adjust antibiotics. Qualifiers: Urinary tract infection type: acute pyelonephritis Qualified Code(s): N10 - Acute pyelonephritis (3) Acute kidney injury Status: Acute Likely multifactorial: sepsis + post-obstructive. Improved. Continue to trend. Strict I's and O's. Dose-adjust antibiotics. Avoid nephrotoxins as able. (4) Hydronephrosis Status: Acute CT of the abdomen and pelvis 06/20/17 showed interval development of left hydronephrosis and left hydroureter. Urology consulted and following: likely post-obstructive. Aceves catheter placed by the urology team. Qualifiers: Hydronephrosis type: unspecified Qualified Code(s): N13.30 - Unspecified hydronephrosis (5) Prostate cancer Status: Acute Diagnosed in January 2016. Mets to the bladder, left shoulder/scapula, left symphysis pubis, and likely the lung. Currently on Lupron and Zometa Q3 months with last dose in April. Zytiga discontinued previously due to diarrhea. PSA up to 33 from 12 in January. [facility] consulted and following. Palliative care consulted and following. Pending transition to hospice on discharge. (6) Bone metastasis Status: Acute Known bone mets to the left shoulder/scapula s/p palliative radiation. New mets noted to the left symphysis pubis. Further management per the palliative care and hem/onc teams. (7) Pulmonary nodules Status: Acute Likely secondary to metastatic disease. CT chest showed multiple bilateral pulmonary nodules. Further workup and management per the hem/onc team. (8) CAD (coronary artery disease) Status: Chronic Qualifiers: Coronary Disease-Associated Artery/Lesion type: [place] artery [place] vs. transplanted heart: habemat[place] heart Associated angina: without angina Qualified Code(s): I25.10 - Atherosclerotic heart disease of [place] coronary artery without angina pectoris (9) Hypertension Status: Chronic Qualifiers: Hypertension type: essential hypertension Qualified Code(s): I10 - Essential (primary) hypertension - Subjective Interval history: Patient seen and examined. No acute events noted overnight. Patient lying in bed States overall he feels much better. He does complain of left shoulder pain that hurts only with ROM. He denies any fevers or chills or rigors. He denies any chest pain, shortness of breath, or cough. He denies any nausea, vomiting, or constipation. He reports large diarrhea bowel movement yesterday , but none today. He has a Aceves catheter that remains patent with dark brown blood-tinged urine. He denies any oral thrush or new skin lesions. Infect Dis PN-Objective Data - Labs CBC & Chem 7: 06/24/17 05:04 06/24/17 05:04 Labs: Laboratory Results - last 24 hr 06/24/17 06/24/17 06/24/17 05:04 05:04 05:04 WBC 8.0 RBC 2.39 L Hgb 7.7 L Hct 23.5 L MCV 98.3 MCH 32.2 MCHC 32.8 RDW 12.9 Plt Count 195 MPV 9.3 L Immature Gran % 1.4 Seg Neutrophils % 67.0 Lymphocytes % 17.9 Monocytes % 7.7 Eosinophils % 5.2 Basophils % 0.8 Neutrophils # 5.3 Lymphocytes # 1.4 Monocytes # 0.6 Eosinophils # 0.4 Basophils # 0.1 Sodium 143 Potassium 4.5 Chloride 117 H Carbon Dioxide 20 L BUN 12 Creatinine 0.81 Est GFR ( Amer) > 60 Est GFR (Non-Af Amer) > 60 BUN/Creatinine Ratio 15 Glucose 88 Calculated Osmolality 295 Calcium 7.8 L Vancomycin Trough 10 Exam - Constitutional Vitals: Temp Pulse Resp BP Pulse Ox 97.8 F 98 17 144/50 93 06/24/17 06:42 06/24/17 06:42 06/24/17 06:42 06/24/17 06:42 06/24/17 06:42 General appearance: average body habitus, cooperative, no acute distress - Head Head exam: Present: atraumatic, normal inspection, normocephalic - Eye Eye exam: Present: EOMI, normal appearance, PERRL Pupils: Present: normal accommodation - ENT ENT exam: Present: mucous membranes moist - Neck Neck exam: Present: normal inspection - Respiratory Respiratory exam: Present: CTAB. Absent: rales, respiratory distress, rhonchi, wheezes - Cardiovascular Cardiovascular exam: Present: RRR, +S1, +S2 - GI/Abdominal GI/Abdominal exam: Present: normal bowel sounds, soft. Absent: distended, tenderness Additional comments: Aceves catheter noted to be draining dark brown, bloody urine. - Extremities Exam Extremities exam: Present: normal inspection. Absent: joint swelling, pedal edema, tenderness - Neurological Exam Neurological exam: Present: alert, oriented X3, no focal deficits - Psychiatric Psychiatric exam: Present: normal affect, normal mood - Skin Skin exam: Present: dry, intact, normal color, warm - VTE Documentation of Mechanical Device: Intermittent pneumatic compression device Consult Discharge Plan - Plan Instructions: Doxycycline (By mouth), Oxycodone/Acetaminophen (By mouth), Lorazepam (By mouth), Bicalutamide (By mouth), Urinary Tract Infection in Men ( DC) Referrals: Odell Marshall MD [Primary Care Provider] - 06/29/17 2:45 pm (Please follow up as schedule...) Prescriptions: LORazepam [Ativan] 0.5 mg PO Q4HR PRN 7 Days #30 tablet PRN Reason: Anxiety Bicalutamide [Casodex] 50 mg PO DAILY #30 tablet Doxycycline Hyclate 100 mg PO BID 8 Days #16 capsule Oxycodone HCl/Acetaminophen [Percocet 5-325 mg Tablet] 1 each PO Q4H PRN 7 Days #42 tablet PRN Reason: Pain - Attending Attestation I examined this patient and my medical decision-making was reviewed with the Resident Physician. I agree with the documented findings, disposition and treatment plan as described except to the extent set forth below.
--- NOTE | 2017-06-24 10:11 | Discharge Summary ---
- NOTES TO OUTPATIENT PROVIDER Notes to Outpatient Provider: Follow up with urology for indwelling catheter Date of Encounter: 06/24/17 Time of Encounter: 10:00 - Discharge Diagnosis (1) Sepsis Priority: Primary Status: Acute Assessment and Plan: 82 year old male with pmh of prostate cancer, hypertension presented to the ER with dysuria of 1 week duration. He was assessed with Sepsis 2/2 to pyelonephritis and staph aureus UTI. He was initially started on vanc and zosyn but antibiotics were tapered to vanc once urine cultures came back positive for stap aureus. Blood cultures negative. He was seen by ID and will be discharged to complete a course of po doxycycline to complete a 14 day antibiotic course in total. CT scan also showed hydronephrosis and perinephric stranding. He was seen by urology who placed a aceves catheter and will follow up with him as an outpatient. He also had Ann which resolved with hydration as well as with resolution of his hydronephrosis Qualifiers: Sepsis type: methicillin resistant Staphylococcus aureus Qualified Code(s) : A41.02 - Sepsis due to Methicillin resistant Staphylococcus aureus (2) Acute kidney injury Priority: Secondary Status: Acute Assessment and Plan: ANN vs Ann on CKD. Monitor creatinine. IV fluids. Obtain CT abdomen showed new left hyronephrosis. Urology following. creatinine trending down (3) Hydronephrosis Priority: Secondary Status: Acute Assessment and Plan: Patient has aceves in place. Urology following. Plan to discharge on aceves and schedule outpatient follow up with urology. No indication for stent placement at this time Qualifiers: Hydronephrosis type: unspecified Qualified Code(s): N13.30 - Unspecified hydronephrosis (4) Urinary tract infection Priority: Secondary Status: Acute Assessment and Plan: Switched rocephin to zosyn 2/2 to worsening leukocytosis. Urine cultures showed staph aureus. Vancomycin added. F/U blood cultures.New CT scan showed bilateral perinephric stranding and hydronephrosis. Urology following Qualifiers: Urinary tract infection type: acute pyelonephritis Qualified Code(s): N10 - Acute pyelonephritis (5) Prostate cancer Priority: Secondary Status: Acute Assessment and Plan: Patient has remote metastasis to bone and possible to lung as well. CT abdomen shows new pulmonary nodules. Bone scan shows new areas of uptake in left scapula. Palliative care following and patient is now DNR (6) CAD (coronary artery disease) Priority: Secondary Status: Chronic Assessment and Plan: continue home meds Qualifiers: Coronary Disease-Associated Artery/Lesion type: [place] artery [place] vs. transplanted heart: [place] heart Associated angina: without angina Qualified Code(s): I25.10 - Atherosclerotic heart disease of [place] coronary artery without angina pectoris (7) Hypertension Priority: Secondary Status: Chronic Assessment and Plan: Continue home medications. Closely monitor BP Qualifiers: Hypertension type: essential hypertension Qualified Code(s): I10 - Essential (primary) hypertension (8) DVT prophylaxis Priority: Secondary Status: Acute Assessment and Plan: Heparin subcutaneously Hospital course: Mr. Link is a 82 year old male - Time Spent with Patient Total time spent providing and/or coordinating discharge services: - Discharge Medications Prescriptions: LORazepam [Ativan] 0.5 mg PO Q4HR PRN 7 Days #30 tablet PRN Reason: Anxiety Bicalutamide [Casodex] 50 mg PO DAILY #30 tablet Doxycycline Hyclate 100 mg PO BID 8 Days #16 capsule Oxycodone HCl/Acetaminophen [Percocet 5-325 mg Tablet] 1 each PO Q4H PRN 7 Days #42 tablet PRN Reason: Pain Home Medications: Aspirin Enteric Coated [Aspirin EC] 81 mg PO DAILY 10/01/16 [History] Lisinopril [Zestril] 20 mg PO DAILY 10/01/16 [History] Omeprazole [PriLOSEC] 20 mg PO DAILY 10/01/16 [History] Psyllium Seed (with Dextrose) [Natural Fiber Lax Powder] 368 gm PO TID 10/01/16 [History] Gabapentin [Neurontin] 100 mg PO DAILY #150 capsule 11/06/16 [Rx] Bicalutamide [Casodex] 50 mg PO DAILY #30 tablet 06/24/17 [Rx] Doxycycline Hyclate 100 mg PO BID 8 Days #16 capsule 06/24/17 [Rx] LORazepam [Ativan] 0.5 mg PO Q4HR PRN 7 Days #30 tablet 06/24/17 [Rx] Oxycodone HCl/Acetaminophen [Percocet 5-325 mg Tablet] 1 each PO Q4H PRN 7 Days #42 tablet 06/24/17 [Rx] Allergies/Adverse Reactions: 3 Allergy/AdvReac Type Severity Reaction Status Date / Time Iodinated Contrast- Oral and Allergy See Verified 06/18/17 18:51 IV Dye Comments Date of admission: 06/20/17 10:31 Primary care physician: Odell Marshall MD Consults: 06/21/17 07:20 Consult to Infectious Diseases [CONS] Routine Consulting Provider: [facility] [place] Reason for Consult: staph aureus UTI Call Completed: Yes - Constitutional Vitals: Temp Pulse Resp BP Pulse Ox 97.8 F 98 17 144/50 93 06/24/17 06:42 06/24/17 06:42 06/24/17 06:42 06/24/17 06:42 06/24/17 06:42 General appearance: Present: A&O X 3, no acute distress, answers questions appropriately - Patient Status Disposition: Home, Self-Care Condition: Good - Discharge Instructions Instructions: Doxycycline (By mouth), Oxycodone/Acetaminophen (By mouth), Lorazepam (By mouth), Bicalutamide (By mouth), Urinary Tract Infection in Men ( DC) Follow Up With: Odell Marshall MD [Primary Care Provider] - 06/29/17 2:45 pm (Please follow up as schedule...) - VTE Documentation of Mechanical Device: Intermittent pneumatic compression device
--- NOTE | 2017-06-24 10:13 | Palliative Progress Note ---
Date of Encounter: 06/24/17 Time of Encounter: 09:15 - Assessment and plan (1) Weakness generalized Current Visit: Yes Status: Acute Assessment and plan: Patient having improved strength. Patient will return home with [facility]. (2) Goals of care, counseling/discussion Current Visit: Yes Status: Acute Assessment and plan: Spoke with patient's daughter. Plan to go home today with [facility]. Daughter inquired about coverage for Palliative radiation; notified Mica ([phone] who agreed that could be covered. Mica is coming to room to speak with patient and his daughter. Notified Dr. Morse of pending discharge. Wrote prescriptions for Ativan and Percocet; ran OARRS report and transmitted to [facility] electronically. (3) Prostate cancer Current Visit: Yes Status: Acute Assessment and plan: Follow recommendations per Oncology for considering palliative radiation. (4) Urinary tract infection Current Visit: Yes Status: Acute Qualifiers: Qualified Code(s): N10 - Acute pyelonephritis (5) Anxiety Current Visit: Yes Status: Acute Assessment and plan: Patient has received 2 doses of Ativan in the last 24 hours; reports improvement. Sent prescription for Ativan PRN at discharge. (6) Cancer associated pain Current Visit: Yes Status: Acute Assessment and plan: Patient rates pain a 10/10 during assessment. Has taken two doses of Percocet and one dose of [place] in last 24 hours. Will order Percocet 5/325 mg Q4H PRN for discharge. - Time Spent With Patient Total time spent is greater than 50% in coordination of care (as documented) at patient's floor/unit and/or counseling patient: - Subjective Interval history: Patient resting in bed, awake, alert, and oriented times 3 upon arrival. During initial evaluation, no family present at bedside. Patient reports pain 10/10, chronic dull pain in left shoulder; reports causes difficulty with playing guitar. Patient has received two doses of Percocet in the last 24 hours and one dose of [place] in the last 24 hours. Patient reports increased anxiety; has had 2 doses of ativan in the last 24 hours. Patient reports pain medication and ativan are helping with comfort. Patient reports Dr. Walters mentioned the possibility of some treatment to allow for comfort. Spoke with patient's RN and she informed would bring some PRN Ativan and Percocet for comfort if was time. Patient's RN then reported patient's daughter had arrived. Returned to room to discuss discharge planning. Daughter requested to speak with [facility] to see if palliative radiation would be accepted in hospice program; Mica ( [phone]) reported that they could get that approved and would be up to talk to the daughter soon. Returned to room to inform daughter of pending [facility] arrival and met Dr. Morse; informed of pending discharge with [facility] today. - Constitutional Vitals: Abnormal lab results RBC 2.39 M/mcL (4.19-5.50) L 06/24/17 05:04 Hgb 7.7 g/dL (12.9-16.9) L 06/24/17 05:04 Hct 23.5 % (37.5-50.1) L 06/24/17 05:04 MPV 9.3 fL (9.4-12.4) L 06/24/17 05:04 Chloride 117 mEq/L (98-107) H 06/24/17 05:04 Carbon Dioxide 20 mEq/L (23-29) L 06/24/17 05:04 Calcium 7.8 mg/dL (8.6-10.3) L 06/24/17 05:04 Prostate Specific Ag 33.84 ng/mL (Less than 4.00) H 06/19/17 18:15 Urine Color Red (Yellow) A 06/18/17 16:50 Urine Clarity Turbid (Clear) A 06/18/17 16:50 Urine Protein 100 mg/dL (Neg-Trace) H 06/18/17 16:50 Urine Ketones Trace mg/dL (Negative) H 06/18/17 16:50 Urine Blood Large (Negative) H 06/18/17 16:50 Urine Nitrite Positive (Negative) A 06/18/17 16:50 Urine Bilirubin Small (Negative) H 06/18/17 16:50 Ur Leukocyte Esterase Large (Negative) H 06/18/17 16:50 Urine Microscopic RBC TNTC per hpf (0-3) H 06/18/17 16:50 Urine Microscopic WBC TNTC per hpf (0-3) H 06/18/17 16:50 Ur Squamous Epith Cells Many per lpf (None-Few) H 06/18/17 16:50 Urine Bacteria Moderate per hpf (None-Few) H 06/18/17 16:50 Ur Culture Indicated? NO. (NO) A 06/18/17 16:50 General appearance: Present: cooperative, no acute distress - Head Head exam: Present: atraumatic, normal inspection - Eye Eye exam: Present: EOMI, normal appearance, PERRL. Absent: periorbital swelling , periorbital tenderness Pupils: Present: normal accommodation, PERRL - ENT ENT exam: Present: mucous membranes moist, normal external ear exam - Neck Neck exam: Present: full ROM, normal inspection - Respiratory Respiratory exam: Present: CTAB. Absent: accessory muscle use, respiratory distress - Cardiovascular Cardiovascular exam: Present: +S1, +S2 - GI/Abdominal GI/Abdominal exam: Present: normal bowel sounds, soft. Absent: tenderness - Rectal Rectal exam: Present: deferred - Extremities Exam Extremities exam: Present: normal capillary refill, normal inspection, tenderness. Absent: full ROM (limited movement with left shoulder), pedal edema - Back Exam Back exam: Present: full ROM, normal inspection - Neurological Exam Neurological exam: Present: alert, oriented X3. Absent: altered - Psychiatric Psychiatric exam: Present: normal affect, normal mood - Skin Skin exam: Present: intact, normal color, warm Palliative Quality Palliative Quality: Screen for Code Status: Yes, Screen for Goals of Care: Yes, Screen for Pain: Yes, If Pain Regimen Started, Initiate Bowel Regimen: NA, Screen for Nausea/Vomitting: Yes - Labs CBC & Chem 7: 06/24/17 05:04 06/24/17 05:04 Labs: Laboratory Results - last 24 hr 06/24/17 06/24/17 06/24/17 05:04 05:04 05:04 WBC 8.0 RBC 2.39 L Hgb 7.7 L Hct 23.5 L MCV 98.3 MCH 32.2 MCHC 32.8 RDW 12.9 Plt Count 195 MPV 9.3 L Immature Gran % 1.4 Seg Neutrophils % 67.0 Lymphocytes % 17.9 Monocytes % 7.7 Eosinophils % 5.2 Basophils % 0.8 Neutrophils # 5.3 Lymphocytes # 1.4 Monocytes # 0.6 Eosinophils # 0.4 Basophils # 0.1 Sodium 143 Potassium 4.5 Chloride 117 H Carbon Dioxide 20 L BUN 12 Creatinine 0.81 Est GFR ( Amer) > 60 Est GFR (Non-Af Amer) > 60 BUN/Creatinine Ratio 15 Glucose 88 Calculated Osmolality 295 Calcium 7.8 L Vancomycin Trough 10 Consult Discharge Plan - Plan Referrals: Odell Marshall MD [Primary Care Provider] - Prescriptions: LORazepam [Ativan] 0.5 mg PO Q4HR PRN 7 Days #30 tablet PRN Reason: Anxiety Oxycodone HCl/Acetaminophen [Percocet 5-325 mg Tablet] 1 each PO Q4H PRN 7 Days #42 tablet PRN Reason: Pain
[2017-06-24 10:52] VITALS: BP 169/69
--- NOTE | 2017-06-24 11:28 | Physician Discharge Referral ---
Home Health/Hosp Referral Info Transfer to: Hospice - Diagnosis (1) Sepsis Priority: Primary Status: Acute (2) Acute kidney injury Status: Acute (3) Hydronephrosis Status: Acute (4) Urinary tract infection Status: Acute (5) Prostate cancer Status: Acute (6) CAD (coronary artery disease) Status: Chronic (7) Hypertension Status: Chronic (8) DVT prophylaxis Status: Acute - Respiratory Orders Smoking Cessation: Smoking cessation has been advised. For more information, call the [place] [employer] Quit Line at [phone]-WTTS-NOW. - Diet/Nutrition Diet/Nutrition Orders: Cardiac - Activity Activity Orders: Ambulate - Services Needed Following services are medically necessary services: Nursing, Home Health Aide, Physical Therapy - Transfer Medications Prescriptions: LORazepam [Ativan] 0.5 mg PO Q4HR PRN 7 Days #30 tablet PRN Reason: Anxiety Bicalutamide [Casodex] 50 mg PO DAILY #30 tablet Doxycycline Hyclate 100 mg PO BID 8 Days #16 capsule Oxycodone HCl/Acetaminophen [Percocet 5-325 mg Tablet] 1 each PO Q4H PRN 7 Days #42 tablet PRN Reason: Pain Home Medications: Aspirin Enteric Coated [Aspirin EC] 81 mg PO DAILY 10/01/16 [History] Lisinopril [Zestril] 20 mg PO DAILY 10/01/16 [History] Omeprazole [PriLOSEC] 20 mg PO DAILY 10/01/16 [History] Psyllium Seed (with Dextrose) [Natural Fiber Lax Powder] 368 gm PO TID 10/01/16 [History] Gabapentin [Neurontin] 100 mg PO DAILY #150 capsule 11/06/16 [Rx] Bicalutamide [Casodex] 50 mg PO DAILY #30 tablet 06/24/17 [Rx] Doxycycline Hyclate 100 mg PO BID 8 Days #16 capsule 06/24/17 [Rx] LORazepam [Ativan] 0.5 mg PO Q4HR PRN 7 Days #30 tablet 06/24/17 [Rx] Oxycodone HCl/Acetaminophen [Percocet 5-325 mg Tablet] 1 each PO Q4H PRN 7 Days #42 tablet 06/24/17 [Rx] Allergies/Adverse Reactions: 3 Allergy/AdvReac Type Severity Reaction Status Date / Time Iodinated Contrast- Oral and Allergy See Verified 06/18/17 18:51 IV Dye Comments Certification: Further, I certify that my clinical findings support that this patient is homebound (i.e. absences from home require considerable and taxing effort and are for medical reasons or protestant services or infrequently or short duration when for other reasons) because: Homebound Reason: Patient requires assistance of a person or device to safely leave home Attestation: My signature below is to certify that this patient is under my care and that I, or nurse practitioner, or a physician's assistant professor surgical technology working with me, has a face-to -face encounter with this patient.
[2017-06-24] MEDS ORDERED: Aminoglycoside Consult 1 EACH MC ONE (12:45)
== END 2017-06-24 12:46 | disposition home or self-care (01) | DRG 872 ==
LOC: EMEROO 15:41 → 3ANU 15:41 → 2ANU 06-19 00:49
PROVIDERS: ADMIT Nurse Practitioner Family; ATTEND Nurse Practitioner Family